=== PATIENT | male | born 1945 | race Hispanic/Latino ===

== ENCOUNTER 2018-10-15 05:40 | Inpatient (IN) | payer OTHER ==
--- NOTE | 2018-10-09 11:24 | RAD REPORT ---
EXAM DESCRIPTION: RAD - Chest Pa And Lat (2 Views) - 10/09/2018 11:13 am CLINICAL HISTORY: preop Chest pain. COMPARISON: No comparisons FINDINGS: The lungs are clear. The heart is prominent with changes of a prior CABG noted. No displac ed fractures.
[2018-10-09 12:00] LABS: Urine Appearance CLEAR; Urine Bilirubin NEGATIVE (NEG); Urine Blood NEGATIVE (NEG); Urine Color YELLOW; Urine Glucose NEGATIVE (NEG); Urine Protein NEGATIVE (NEG)
[2018-10-09 12:03] LABS: Absolute Lymphocytes (CBC) 1.8 K/uL (0.7-4.9); Absolute Monocytes 0.4 K/uL (0.1-1.3); Absolute Neutrophil 3.9 K/uL (1.8-8.0); Basophils % 0.6 % (0-1.3); Eosinophils % 2.4 % (0-4.4); Hematocrit 47.6 % (39.6-49.0); Lymphocytes % 28.7 % (15.3-44.8); MPV 9.5 fL (7.6-11.3); Monocytes % 6.8 % (3.3-12.3); RBC Red Blood Cell Count 4.97 M/uL (4.33-5.43)
[2018-10-09 12:13] LABS: Urine Microscopic Reflex NO UMIC
[2018-10-09 12:20] LABS: Albumin 4.2 g/dL (3.4-5.0); Bilirubin Total 0.9 mg/dL (0.2-1.0); Potassium 3.8 mmol/L (3.5-5.1)
[2018-10-09 12:26] LABS: Bilirubin Direct 0.3 mg/dL (0-0.2); Bilirubin Total 0.9 mg/dL (0.2-1.0)
[2018-10-09 13:16] LABS: Protime INR 1.37
[2018-10-15] MEDS ORDERED: Ringers Lactate 1,000 ML IV ONE (06:18)
[2018-10-15] MEDS ORDERED: CEFAZOLIN/SWI 1gm 1 GM/10 ML SYR ONE (06:19)
[2018-10-15] MEDS ORDERED: DEXAMETHASONE 4 MG/ML VIAL ONE (07:10)
[2018-10-15] MEDS ORDERED: MIDAZOLAM HCL 2 MG/2 ML INJ ONE (07:10)
[2018-10-15] MEDS ORDERED: FENTANYL CITR 100 MCG/2 ML ONE (07:10)
[2018-10-15] MEDS ORDERED: ROPLVACAINE HCL 40 ML ONE (07:10)
[2018-10-15] MEDS ORDERED: TRANEXAMIC ACID 1,000 MG in NA CHLORIDE 0.9% 50 ML IV SCH (07:15)
[2018-10-15] MEDS ORDERED: ROCURONIUM 50 MG/5 ML VIAL IV ONE ×2 (08:29→09:17)
[2018-10-15] MEDS ORDERED: LIDOCAINE 2% MPF 5 ML VIAL ONE (08:29)
[2018-10-15] MEDS ORDERED: PROPOFOL 200 MG/20 ML VIAL IV ONE (08:30)
[2018-10-15] MEDS ORDERED: EPHEDRINE SULF 50 MG/ML VIAL ONE (08:30)
[2018-10-15] MEDS: BUPIVACA 0.25%/EPI 0.0005% MDV 50 ML VIAL ONE ×2 (08:54→11:52)
[2018-10-15] MEDS ORDERED: NA CHLORIDE 0.9% 250 ML ONE (09:07)
[2018-10-15] MEDS ORDERED: NA CHLORIDE 0.9% 1,000 ML ONE (09:10)
[2018-10-15] MEDS ORDERED: CEFAZOLIN SODIUM 1 GM/VIAL ONE (09:20)
[2018-10-15] MEDS ORDERED: Phenylephrine HCl 10 MG/ML 1 ML VIAL ONE (09:47)
[2018-10-15] MEDS ORDERED: ESMOLOL HCL 10 ML IV ONE (10:43)
[2018-10-15] MEDS ORDERED: KETAMINE HCL 500 MG/5 ML VIAL ONE (11:10)
[2018-10-15] MEDS ORDERED: KETOROLAC 30 MG/ML INJ ONE (11:10)
[2018-10-15] MEDS: NA CHLORIDE 0.9% 1,000 ML ONE ×2 (11:50→12:24)
[2018-10-15] MEDS ORDERED: GLYCOPYRROLATE 0.2 MG/ML SYR ONE (12:05)
[2018-10-15] MEDS ORDERED: NEOSTIGMINE 1 MG/ML -10 ML VIAL ONE (12:13)
--- NOTE | 2018-10-15 12:17 | P.BOP ---
Preoperative diagnosis: MED. COMPT. PRIMARY DJD RIGHT KNEE Postoperative diagnosis: SAME Primary procedure: RIGHT TOTAL KNEE ARTHROPLASTY Traveling Construction Superintendent: Ping King (gave necessary 1st assist throughout case) Estimated blood loss: 250 mL Specimen: bone shards and spft tissues debrided Findings: Narrowed med. compartment w/chondromalacia Anesthesia: General Complications: None Implants: Sigma femoral Rsz3 PSRP; tray RPsz3; Insert [id number] PSRP; ODpatella, 38mm Fluids & blood products: simplex HV cement w/GENT 2 batches Transferred to: Recovery Room Condition: Good
[2018-10-15] MEDS ORDERED: DOCUSATE NA 100 MG CAP PO PRN (12:20)
[2018-10-15] MEDS ORDERED: ONDANSETRON 4 MG/2 ML VIAL IV PRN (12:20)
[2018-10-15 12:38] LABS: Hematocrit 45.1 % (39.6-49.0)
--- NOTE | 2018-10-15 12:42 | RAD REPORT ---
EXAM DESCRIPTION: RAD - Knee Right 2 View - 10/15/2018 12:37 pm CLINICAL HISTORY: Postop right TKA COMPARISON: None. FINDINGS: A right total knee arthroplasty has been performed. Hardware is in expected location. Air is present in the joint space. . Skin naveen are noted. IMPRESSION: Postoperative right knee with no unexpected finding.
[2018-10-15] MEDS ORDERED: ONDANSETRON HCL 40 MG/20 ML VIAL ONE (12:43)
[2018-10-15] MEDS: Ringers Lactate 1,000 ML IV SCH (13:00)
[2018-10-15] MEDS: HYDROCODONE/APAP 7.5/325 MG TAB PO PRN (15:17)
--- NOTE | 2018-10-15 15:44 | P.CNS ---
Date of Consult: 10/15/18 Reason for Consult: Medical management Chief Complaint: Right knee pain status post total knee replacement History of Present Illness: Patient is a 72-year-old obese male with past medical history of coronary artery disease status post CABG hypertension hyperlipidemia gout congestive heart failure on Eliquis who has severe osteoarthritis of the right knee and was admitted by Dr. Johnson for total knee replacement. Patient did well postoperatively. Patient does report some pain swelling and numbness. no fevers or chills. Hospitalist service was consulted for medical management. when the patient was seen on the floor he was awake alert oriented x3 not in any acute distress. Allergies No Known Allergies Allergy (Verified 10/09/18 10:40) Home medications list reviewed: Yes Home Medications: Allopurinol [Zyloprim] 300 mg PO DAILY 10/09/18 Apixaban [Eliquis] 5 mg PO BID 10/09/18 Aspirin [Aspirin EC 81 MG] 81 mg PO DAILY 10/09/18 Furosemide [Lasix] 40 mg PO BID 10/09/18 Lisinopril [Prinivil] 20 mg PO [id number] 10/09/18 Metoprolol Succinate [Toprol Xl] 50 mg PO BID 10/09/18 Potassium Chloride [K-Dur] 20 meq PO BID 10/09/18 Simvastatin 10 mg PO DAILY 10/09/18 - Past Medical/Surgical History Diabetic: No -: htn -: Hyperlipidemia -: Coronary artery disease -: Gout -: Congestive heart -: quadruple heart bypass-2010 -: cholecystectomy-2017 -: hemorrhoidectomy 2008 -: appendectomy 1968 -: left total knee replaced 2013 -: Inguinal hernia repair - Family History Mother Medical History: Hypertension Notes: brother-diabetic. sister-diabetic, kidney and stomach disease - Social History Smoking Status: Never smoker Alcohol use: No CD- Drugs: No Caffeine use: Yes Place of Residence: Home Review of Systems 10-point ROS is otherwise unremarkable General: As per HPI Musculoskeletal: As per HPI Physical Examination Temp Pulse Resp BP Pulse Ox 97.6 F 68 14 109/68 10/15/18 13:42 10/15/18 13:42 10/15/18 13:42 10/15/18 13:42 General: Alert, In no apparent distress, Oriented x3, Obese HEENT: Atraumatic, PERRLA, Mucous membr. moist/pink, EOMI, Sclerae nonicteric Neck: Supple, 2+ carotid pulse no bruit, JVD not distended Respiratory: Clear to auscultation bilaterally, Normal air movement Cardiovascular: No edema, Normal pulses, Regular rate/rhythm, Normal S1 S2 Gastrointestinal: Normal bowel sounds, Soft and benign, Non-distended, No tenderness Musculoskeletal: Other (Right knee Incision site clean dry and intact. Wrapped with Jak wrap) Integumentary: No rashes Neurological: Normal gait, Normal speech, Normal strength at 5/5 x4 extr, Normal tone, Normal affect Lymphatics: No axilla or inguinal lymphadenopathy Laboratory Data (last 24 hrs) 10/15/18 12:23: Hgb 15.0, Hct 45.1 Imagings Data: Right knee x-ray Postoperative right knee with no unexpected finding. Chest x-ray The lungs are clear. The heart is prominent with changes of a prior CABG noted. No displaced fractures - Problems (1) Right knee DJD Current Visit: Yes Status: Acute Qualifiers: Osteoarthritis type: primary Qualified Code(s): M17.11 - Unilateral primary osteoarthritis, right knee (2) Congestive heart failure Current Visit: Yes Status: Acute Qualifiers: Heart failure type: systolic Heart failure chronicity: chronic Qualified Code(s): I50.22 - Chronic systolic (congestive) heart failure (3) Osteoarthritis Current Visit: Yes Status: Acute Qualifiers: Osteoarthritis location: knee Osteoarthritis type: primary Laterality: right Qualified Code(s): M17.11 - Unilateral primary osteoarthritis, right knee (4) Coronary artery disease Current Visit: Yes Status: Acute Qualifiers: Coronary Disease-Associated Artery/Lesion type: [place] artery [place] vs. transplanted heart: [place] heart Associated angina: without angina Qualified Code(s): I25.10 - Atherosclerotic heart disease of [place] coronary artery without angina pectoris (5) Hypertension Current Visit: Yes Status: Acute Qualifiers: Hypertension type: essential hypertension Qualified Code(s): I10 - Essential (primary) hypertension (6) Hyperlipidemia Current Visit: Yes Status: Acute Qualifiers: Hyperlipidemia type: mixed hyperlipidemia Qualified Code(s): E78.2 - Mixed hyperlipidemia (7) Obesity (BMI 30.0-34.9) Current Visit: Yes Status: Acute (8) Gout Current Visit: Yes Status: Acute Qualifiers: Gout site: unspecified site Encounter type: initial encounter Chronicity : chronic Presence of tophus: without tophus (9) Diabetes Current Visit: Yes Status: Acute Qualifiers: Diabetes mellitus type: type 2 Diabetes mellitus prison insulin use: without marine oil terminal superintendent 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 No previous history of diabetes. For now recommend lifestyle modification. Start on sliding scale insulin and monitor glucose ACHS. Recheck hemoglobin A1c in 3 months. If still elevated and lifestyle modifications have not made a difference than patient to be started on metformin. Diabetes education Resume home medications as appropriate P.r.n. medications for blood pressure greater than 160 systolic PT eval Patient counseled regarding obesity. Dietary and lifestyle changes recommended Resume Eliquis 24 hr post surgery. Monitor H&H BMP in a.m. Will follow along with you Thank you for the opportunity to participate in the care of your patient
[2018-10-15] MEDS ORDERED: GLUCAGON 1 MG/VIAL IM PRN (15:56)
[2018-10-15] MEDS ORDERED: D50W 25 GM/50 ML SYRINGE IV PRN (15:56)
[2018-10-15] MEDS: INSULIN -REGULAR HUMAN 50 UNIT/0.5 ML ML SQ SCH ×2 (16:53→21:00)
[2018-10-15] MEDS: CEFAZOLIN/SWI 1gm 1 GM/10 ML SYR IVP SCH (16:53)
[2018-10-15] MEDS: POTASSIUM CL SA 10 MEQ TAB PO SCH (21:09)
[2018-10-15] MEDS: ATORVASTATIN 10 MG TAB PO SCH (21:09)
[2018-10-15] MEDS: METOPROLOL XL 50 MG TAB PO SCH (21:10)
[2018-10-16] MEDS: CEFAZOLIN/SWI 1gm 1 GM/10 ML SYR IVP SCH (02:38)
[2018-10-16 06:23] LABS: Hematocrit 38.9 % (39.6-49.0)
[2018-10-16 06:36] LABS: Potassium 4.3 mmol/L (3.5-5.1)
[2018-10-16] MEDS: LISINOPRIL 20 MG TAB PO SCH (06:39)
[2018-10-16] MEDS: INSULIN -REGULAR HUMAN 50 UNIT/0.5 ML ML SQ SCH ×4 (07:30→21:00)
[2018-10-16] MEDS: Ringers Lactate 1,000 ML IV SCH (08:02)
[2018-10-16] MEDS: METOPROLOL XL 50 MG TAB PO SCH ×2 (09:58→21:41)
[2018-10-16] MEDS: POTASSIUM CL SA 10 MEQ TAB PO SCH ×2 (09:59→21:40)
[2018-10-16] MEDS: ALLOPURINOL 300 MG TAB PO SCH (09:59)
--- NOTE | 2018-10-16 13:38 | P.PN ---
Subjective Date of Service: 10/16/18 Chief Complaint: Right knee pain status post total knee replacement Subjective: Improving, Working w/ PT (pain is better controlled. States numbness in leg has improved.) Review of Systems 10-point ROS is otherwise unremarkable Musculoskeletal: As per HPI Physical Examination - Vital Signs Temperature: 97.8 F Blood Pressure: 109/59 Pulse: 71 Respirations: 19 Pulse Ox (%): 93 - Physical Exam General: Alert, In no apparent distress, Oriented x3, Obese HEENT: Atraumatic, PERRLA, EOMI Neck: Supple, JVD not distended Respiratory: Clear to auscultation bilaterally, Normal air movement Cardiovascular: No edema, Normal pulses, Regular rate/rhythm, Normal S1 S2 Gastrointestinal: Normal bowel sounds, Soft and benign, Non-distended, No tenderness Musculoskeletal: No clubbing, Tenderness, Other (right knee incision site clean/ dry/intact. Bandaged) Integumentary: No rashes Neurological: Normal speech, Normal tone, Normal affect - Studies Laboratory Data (last 24 hrs) 10/16/18 05:50: Sodium 139, Potassium 4.3, BUN 20 H, Creatinine 0.91, Glucose 149 H 10/16/18 05:37: Hgb 13.2 L, Hct 38.9 L Medications List Reviewed: Yes Assessment And Plan - Current Problems (Diagnosis) (1) Right knee DJD Current Visit: Yes Status: Acute Qualifiers: Osteoarthritis type: primary Qualified Code(s): M17.11 - Unilateral primary osteoarthritis, right knee (2) Acute blood loss as cause of postoperative anemia Current Visit: Yes Status: Acute Plan: Monitor HH. Transfuse for HH <7. (3) Congestive heart failure Current Visit: Yes Status: Acute Qualifiers: Heart failure type: systolic Heart failure chronicity: chronic Qualified Code(s): I50.22 - Chronic systolic (congestive) heart failure (4) Osteoarthritis Current Visit: Yes Status: Acute Qualifiers: Osteoarthritis location: knee Osteoarthritis type: primary Laterality: right Qualified Code(s): M17.11 - Unilateral primary osteoarthritis, right knee (5) Coronary artery disease Current Visit: Yes Status: Acute Qualifiers: Coronary Disease-Associated Artery/Lesion type: [place] artery [place] vs. transplanted heart: [place] heart Associated angina: without angina Qualified Code(s): I25.10 - Atherosclerotic heart disease of [place] coronary artery without angina pectoris (6) Hypertension Current Visit: Yes Status: Acute Qualifiers: Hypertension type: essential hypertension Qualified Code(s): I10 - Essential (primary) hypertension (7) Hyperlipidemia Current Visit: Yes Status: Acute Qualifiers: Hyperlipidemia type: mixed hyperlipidemia Qualified Code(s): E78.2 - Mixed hyperlipidemia (8) Obesity (BMI 30.0-34.9) Current Visit: Yes Status: Acute (9) Gout Current Visit: Yes Status: Acute Qualifiers: Gout site: unspecified site Encounter type: initial encounter Chronicity : chronic Presence of tophus: without tophus (10) Diabetes Current Visit: Yes Status: Acute Qualifiers: Diabetes mellitus type: type 2 Diabetes mellitus half-way insulin use: without half-way use Diabetes mellitus complication status: with hyperglycemia Qualified Code(s): E11.65 - Type 2 diabetes mellitus with hyperglycemia - Plan Monitor HH Cont SSI and accu checks Resume Elquis tonight. resume ASA Cont PT Will follow with you.
[2018-10-16] MEDS: FUROSEMIDE 40 MG TABLET PO SCH (16:30)
[2018-10-16] MEDS: HYDROCODONE/APAP 7.5/325 MG TAB PO PRN ×2 (17:14→21:41)
[2018-10-16] MEDS: APIXABAN 5 MG TABLET PO SCH (21:40)
[2018-10-16] MEDS: ATORVASTATIN 10 MG TAB PO SCH (21:41)
[2018-10-17] MEDS: HYDROCODONE/APAP 7.5/325 MG TAB PO PRN ×3 (03:21→18:34)
[2018-10-17] MEDS: Ringers Lactate 1,000 ML IV SCH (05:00)
[2018-10-17] MEDS: LISINOPRIL 20 MG TAB PO SCH (06:25)
[2018-10-17] MEDS: INSULIN -REGULAR HUMAN 50 UNIT/0.5 ML ML SQ SCH ×4 (07:30→21:00)
[2018-10-17] MEDS: APIXABAN 5 MG TABLET PO SCH ×2 (08:40→21:28)
[2018-10-17] MEDS: METOPROLOL XL 50 MG TAB PO SCH ×2 (08:40→21:28)
[2018-10-17] MEDS: FUROSEMIDE 40 MG TABLET PO SCH ×2 (08:41→17:17)
[2018-10-17] MEDS: ALLOPURINOL 300 MG TAB PO SCH (08:41)
[2018-10-17] MEDS: POTASSIUM CL SA 10 MEQ TAB PO SCH ×2 (08:41→21:27)
--- NOTE | 2018-10-17 12:15 | P.PN ---
Subjective Date of Service: 10/17/18 Chief Complaint: Right knee pain status post total knee replacement Patient seen and examined chart reviewed and case discussed with that is yesterday. Patient states pain is significantly better working well with PT ambulating with walker. Review of Systems 10-point ROS is otherwise unremarkable Musculoskeletal: As per HPI Physical Examination - Vital Signs Temperature: 96.9 F Blood Pressure: 115/66 Pulse: 85 Respirations: 18 Pulse Ox (%): 99 - Physical Exam General: Alert, In no apparent distress, Oriented x3, Obese HEENT: Atraumatic, PERRLA, EOMI Neck: Supple, JVD not distended Respiratory: Clear to auscultation bilaterally, Normal air movement Cardiovascular: No edema, Normal pulses, Regular rate/rhythm, Normal S1 S2 Gastrointestinal: Normal bowel sounds, Soft and benign, Non-distended, No tenderness Musculoskeletal: No tenderness Integumentary: No rashes, No erythema, Other (Right knee incision site clean dry intact) Neurological: Normal speech, Normal tone, Normal affect - Studies Laboratory Data (last 24 hrs) 10/17/18 04:14: Hgb 13.1 L, Hct 39.0 L Medications List Reviewed: Yes Assessment And Plan - Current Problems (Diagnosis) (1) Right knee DJD Current Visit: Yes Status: Acute Qualifiers: Osteoarthritis type: primary Qualified Code(s): M17.11 - Unilateral primary osteoarthritis, right knee (2) Acute blood loss as cause of postoperative anemia Current Visit: Yes Status: Acute Plan: Monitor HH. Transfuse for HH <7. (3) Congestive heart failure Current Visit: Yes Status: Acute Qualifiers: Heart failure type: systolic Heart failure chronicity: chronic Qualified Code(s): I50.22 - Chronic systolic (congestive) heart failure (4) Osteoarthritis Current Visit: Yes Status: Acute Qualifiers: Osteoarthritis location: knee Osteoarthritis type: primary Laterality: right Qualified Code(s): M17.11 - Unilateral primary osteoarthritis, right knee (5) Coronary artery disease Current Visit: Yes Status: Acute Qualifiers: Coronary Disease-Associated Artery/Lesion type: [place] artery [place] vs. transplanted heart: [place] heart Associated angina: without angina Qualified Code(s): I25.10 - Atherosclerotic heart disease of [place] coronary artery without angina pectoris (6) Hypertension Current Visit: Yes Status: Acute Qualifiers: Hypertension type: essential hypertension Qualified Code(s): I10 - Essential (primary) hypertension (7) Hyperlipidemia Current Visit: Yes Status: Acute Qualifiers: Hyperlipidemia type: mixed hyperlipidemia Qualified Code(s): E78.2 - Mixed hyperlipidemia (8) Obesity (BMI 30.0-34.9) Current Visit: Yes Status: Acute (9) Gout Current Visit: Yes Status: Acute Qualifiers: Gout site: unspecified site Encounter type: initial encounter Chronicity : chronic Presence of tophus: without tophus (10) Diabetes Current Visit: Yes Status: Acute Qualifiers: Diabetes mellitus type: type 2 Diabetes mellitus exterminator insulin use: without residential use Diabetes mellitus complication status: with hyperglycemia Qualified Code(s): E11.65 - Type 2 diabetes mellitus with hyperglycemia - Plan Continue incentive spirometry Monitor HH Cont SSI and accu checks Cont PT Will follow with you.
[2018-10-17] MEDS: ASPIRIN EC 81 MG TAB PO SCH (12:49)
--- NOTE | 2018-10-17 13:25 | P.PN ---
Date of Service: 10/16/18 (POD#1) S: PATIENT QUITE COMFORTABLE AND USED ONLY 1 DOSE PO PAIN MED YESTERDAY, NONE SINCE. ALREADY DID 51' WITH PT THIS AM. O: VSS, AFEBRILE, HGB15.0 AFTER SURGERY, 13.2 THIS AM. FEMORAL & SCIATIC NERVE BLOCKS STILL LIMITING QUAD AND ANKLE EXTENSION. TOES EXTENDING SLIGHTLY. PAIN CONTROL STILL IN EFFECT EXPLAINS LIMITED USE OF MEDICATION. BANDAGE CLEAN DRY AND INTACT. X-RAYS SHOW GOOD ALIGNMENT OF PROSTHETIC COMPONENTS. ELIQUIS TO RESTART THIS EVENING, RUN OF AFIB NOTED ON MONITOR THIS AM. RESTARTING ASA 81 MG TONIGHT WELL. A: HIGHLY MOTIVATED PATIENT DOING WELL 1ST POSTOP DAY. P: CONTINUE MOBILIZATION TOLERATED. APPRECIATE DR. BROWNING'S HELP WITH MEDICAL MANAGEMENT.
--- NOTE | 2018-10-17 13:37 | P.PN ---
Date of Service: 10/17/18 (POD#2) S: PATIENT SITTING IN BEDSIDE CHAIR FORCING FLEXION TO 110 DEGREES.DESCRIBES MAKING COMPLETE CIRCUIT WITH PT THIS AM~270'. WAS ABLE TO GO 125' [id number]' YESTERDAY AFTERNOON. O: VSS, AFEBRILE, 13.1 THIS AM. NERVE BLOCKS RESOLVED AND PATIENT IS ACTIVELY EXTENDING QUAD AND ANKLES/TOES. PAIN CONTROL REQUIRING USE OF PO MEDICATION. BANDAGE REMAINS CLEAN DRY AND INTACT. A: HIGHLY MOTIVATED PATIENT DOING WELL 2ND POSTOP DAY. P: PATIENT CAUTIONED FROM BEING TOO AGGRESSIVE WITH AAROM. FORCED FLEXION CAN FORM FISTULOUS DRAINAGE TRACT TO COMPLICATE WOUND HEALING. ENCOURAGED TO USE CPM FOR STEADY INCREASE IN ROM WITHOUT HIGH PRESSURE HYDRAULIC FORCE. RANGE IMPROVES POST OP HEMARTHROSIS RESOLVES. CONTINUE MOBILIZATION TOLERATED. PLAN DISCHARGE FOR TOMORROW AFTER PHYSICAL THERAPY MORNING EFFORT.
[2018-10-17] MEDS: ATORVASTATIN 10 MG TAB PO SCH (21:27)
[2018-10-17] MEDS: MORPHINE 4 MG/ML SYR IV PRN (21:28)
[2018-10-18 06:41] LABS: Hematocrit 40.1 % (39.6-49.0)
[2018-10-18] MEDS: LISINOPRIL 20 MG TAB PO SCH (06:45)
[2018-10-18] MEDS: MORPHINE 4 MG/ML SYR IV PRN (06:45)
[2018-10-18] MEDS: INSULIN -REGULAR HUMAN 50 UNIT/0.5 ML ML SQ SCH ×3 (07:30→16:30)
[2018-10-18] MEDS: APIXABAN 5 MG TABLET PO SCH (08:24)
[2018-10-18] MEDS: HYDROCODONE/APAP 7.5/325 MG TAB PO PRN (08:24)
[2018-10-18] MEDS: ASPIRIN EC 81 MG TAB PO SCH (08:25)
[2018-10-18] MEDS: FUROSEMIDE 40 MG TABLET PO SCH (08:25)
[2018-10-18] MEDS: ALLOPURINOL 300 MG TAB PO SCH (08:25)
[2018-10-18] MEDS: METOPROLOL XL 50 MG TAB PO SCH (08:26)
[2018-10-18] MEDS: POTASSIUM CL SA 10 MEQ TAB PO SCH (08:26)
--- NOTE | 2018-10-18 13:14 | P.PN ---
Date of Service: 10/18/18 (POD#3) S: PATIENT SITTING IN BEDSIDE CHAIR FINISHING DIET. EASILY MAKING COMPLETE CIRCUIT WITH PT w/FWW~280'. READY FOR DISCHARGE. O: VSS, AFEBRILE, 13.8 THIS AM, UP FROM 13.1 YEST. BANDAGE REMAINS CLEAN DRY AND INTACT, TO BE CHANGED PRIOR TO DISCHARGE. A: HIGHLY MOTIVATED PATIENT DOING WELL 3RD POSTOP DAY. P: PATIENT AGAIN CAUTIONED FROM BEING TOO AGGRESSIVE WITH AROM AND PROM. FORCED FLEXION CAN PUSH FORWARD WITH HYDRAULIC FORCE TO CREATE A FISTULOUS DRAINAGE TRACT TO COMPLICATE WOUND HEALING. ENCOURAGED TO USE CPM FOR STEADY PASSIVE INCREASE IN ROM WITHOUT HIGH PRESSURE FORCE. RANGE IMPROVES POST OP HEMARTHROSIS REABSORBS. CONTINUE MOBILIZATION TOLERATED. DISCHARGE PLANNED TODAY. PHYSICAL THERAPY MORNING EFFORT WAS QUITE SUCCESSFUL. CHANGE AQUACEL BANDAGES PRIOR TO DISCHARGE,ALCOHOL WIPES BEFORE NEW AQUACELS APPLIED. CPM FOR HOME ARRANGED,O-75* SLOW SPEED FOR 3-4 HRS/D RLE. HH FOR ADL, PT TO CONTINUE WBAT RLE FOR TRANSFERS AND GAIT w/FWW F/U MY OFFICE IN 10D FOR STAPLE REMOVAL.
--- NOTE | 2018-10-18 16:13 | P.PN ---
Subjective Date of Service: 10/18/18 Chief Complaint: Right knee pain status post total knee replacement Subjective: Improving Patient seen and examined chart reviewed and case discussed with Dr. Johnson. Patient states pain is significantly better working well with PT ambulating with walker. Review of Systems 10-point ROS is otherwise unremarkable Musculoskeletal: As per HPI Physical Examination - Vital Signs Temperature: 96.8 F Blood Pressure: 109/62 Pulse: 87 Respirations: 18 Pulse Ox (%): 95 - Physical Exam General: Alert, In no apparent distress, Oriented x3, Obese HEENT: Atraumatic, PERRLA, EOMI Neck: Supple Respiratory: Clear to auscultation bilaterally, Normal air movement Cardiovascular: Normal pulses, Regular rate/rhythm, Normal S1 S2, Edema Gastrointestinal: Normal bowel sounds, Soft and benign, Non-distended, No tenderness Musculoskeletal: No tenderness, Other (Right knee incision site clean dry intact ) Integumentary: No rashes Neurological: Normal speech, Normal tone, Normal affect - Studies Laboratory Data (last 24 hrs) 10/18/18 06:03: Hgb 13.8, Hct 40.1 Medications List Reviewed: Yes Assessment And Plan - Current Problems (Diagnosis) (1) Right knee DJD Current Visit: Yes Status: Acute Qualifiers: Osteoarthritis type: primary Qualified Code(s): M17.11 - Unilateral primary osteoarthritis, right knee (2) Acute blood loss as cause of postoperative anemia Current Visit: Yes Status: Acute Plan: Stable. Monitor HH. Transfuse for HH <7. (3) Congestive heart failure Current Visit: Yes Status: Acute Qualifiers: Heart failure type: systolic Heart failure chronicity: chronic Qualified Code(s): I50.22 - Chronic systolic (congestive) heart failure (4) Osteoarthritis Current Visit: Yes Status: Acute Qualifiers: Osteoarthritis location: knee Osteoarthritis type: primary Laterality: right Qualified Code(s): M17.11 - Unilateral primary osteoarthritis, right knee (5) Coronary artery disease Current Visit: Yes Status: Acute Qualifiers: Coronary Disease-Associated Artery/Lesion type: [place] artery [place] vs. transplanted heart: [place] heart Associated angina: without angina Qualified Code(s): I25.10 - Atherosclerotic heart disease of [place] coronary artery without angina pectoris (6) Hypertension Current Visit: Yes Status: Acute Qualifiers: Hypertension type: essential hypertension Qualified Code(s): I10 - Essential (primary) hypertension (7) Hyperlipidemia Current Visit: Yes Status: Acute Qualifiers: Hyperlipidemia type: mixed hyperlipidemia Qualified Code(s): E78.2 - Mixed hyperlipidemia (8) Obesity (BMI 30.0-34.9) Current Visit: Yes Status: Acute (9) Gout Current Visit: Yes Status: Acute Qualifiers: Gout site: unspecified site Encounter type: initial encounter Chronicity : chronic Presence of tophus: without tophus (10) Diabetes Current Visit: Yes Status: Acute Qualifiers: Diabetes mellitus type: type 2 Diabetes mellitus assisted insulin use: without assistant secretary use Diabetes mellitus complication status: with hyperglycemia Qualified Code(s): E11.65 - Type 2 diabetes mellitus with hyperglycemia - Plan Patient going home today with home health and PT Continue incentive spirometry Monitor HH Cont SSI and accu checks Cont PT Will follow with you. Discharge Plan: Home
--- NOTE | 2018-10-19 01:03 | OP ---
Date of Procedure: 10/15/2018 Surgeon: Medardo Johnson MD Instructional Media Services Technician: Ping King who gave very necessary visitor service assistant services throughout the case. Preoperative Diagnosis: Medial compartment primary DJD, right knee. Postoperative Diagnosis: Medial compartment primary DJD, right knee. Primary Procedure: Right total knee arthroplasty with computer navigation. Indications: This 72-year-old male has had severe pain and limitations in using his right knee for y ears. He has had a previous left total knee arthroplasty done by Dr. Wolff and has elected to pro ceed with right total knee arthroplasty after a thorough discussion of risks and benefits with all qu estions answered. Technique: The patient was given a femoral nerve and sciatic nerve block in the PACU and then was ta ryan to the operative room, initially placed in a supine position on the operative table. A general a nesthetic with intubation was applied and the patient had prepping and draping of the right lower ext remity after a bolster was placed under the right hip and the tourniquet was applied to the proximal thigh. The foot was initially in traction and prepping was carried out from the tourniquet to the an kle and then the limb was removed from traction and a DuraPrep stick was used to prep the foot and an kle. After an impervious drape was applied to the foot and ankle and wrapped with Coban, the additio nal draping was accomplished. The incision was drawn on the anterior knee and then the operative are a was covered Ioban sticky drape. An Esmarch bandage was used to exsanguinate the right lower extrem ity and the tourniquet was raised to 250 mmHg for 130 minutes. An additional short tourniquet time w as used for cement injection into the bone and allowing the cement to set. The incision was made homer gitudinally over the patella, extending 4 cm proximally and distally to the tibial tubercle. Sharp d issection was carried through the skin and subcutaneous tissue and then a medial parapatellar approac h was made through the capsular layer. The patella was everted and measured at 23 mm thickness. The 38 mm oval dome patellar trial was placed in position and felt to be appropriate in size. Therefore , the cutting jig was adjusted to remove 9 mm of articular surface. The cut was made with oscillatin g saw and PEG holes were drilled. Then, the trial insert was placed in position and the patella agai n measured 23 mm. The patellar trial was removed and a metal brannon was putting in its place. Anterio r sharp debridement was carried out to include the accessible medial and lateral menisci, anterior cr uciate ligament, and release of the posterior cruciate origin from the intercondylar notch. Anterior debridement was also carried out above the distal femoral articular surface on the anterior femur to allow placement of the flat-footed array. Two threaded 3-mm pins were placed proximally within the incision on the medial side of the distal femoral shaft in the metaphyseal area. The femoral array w as attached to those 2 pins. Two punctures were made in the mid tibial aspect on the medial portion of the tibia. These punctures were used for insertion of 3 mm threaded pins for the tibial array to be attached to the tibia. The limb was then moved in circumduction to calculate within the computer. The center of rotation of the femoral head, the registration of the femur and the tibia were mike d out in sequence as indicated with the Korbit technique. The computers solved for a size 4 femur and tibial tray, but flexion gap was somewhat tight and narrow, so the size was reduced to size 3, wh ich was placed in front of the femoral condyles and found to be an acceptable size. Navigation of th e tibial cutting jig was carried out and it was secured in position. That cut was made and verified with the flat-footed array. Tensionometer was placed within the joint and ligament balancing require d releasing of the distal insertion of the medial collateral ligament. Once the ligament balancing w as acceptable, the solution was accepted and the cutting jig for the distal femur was navigated into position and secured. The distal cut was made and verified and then the 4-in-1 cutting guide was use d to navigate and secure before cutting the anterior portion of the distal femur. This was verified by the flat-footed array and the additional cuts were made for posterior and chamfer cuts. The notch box was placed in position and the reciprocating saw was used to cut the notch for the Sigma femoral right size 3 posterior stabilized rotating platform prosthetic component. The trial was applied and fit nicely. The trial was then removed and the tibial surface was prepared for insertion of the rot ating platform tibial tray size 3. That trial component was secured in position. The Sigma femoral size 3 right prosthetic trial component was tapped into position. The insert chosen was the size 3 x 10 mm posterior stabilized rotating platform trial component. Once it was in place with the oval do me patella 38 mm diameter component also in position, the knee was quite stable and would extend and flex and resist anterior drawer, posterior drawer, varus and valgus stress. There was slight opening to varus stress, less than 5 mm. It was decided that up sizing from the 10 mm insert would most lik sree just restrict flexion and not add to stability. The trial components were all removed and Simpul se lavage was performed while the 2 batches of simplex HV cement with gentamicin were mixed and place d into a cement gun for injection technique. Then, the cement gun and injection technique were clinton ed out for the cut surface of the proximal tibia. The tibial component was tapped into position. Th is was the size 3 rotating platform tibial tray. Excess cement was curetted away and attention was t urned to injecting cement in the cut surface of the distal femur. The tibial component consisting of the Sigma femoral prosthetic component, right, size 3 was pressed into position with excess cement r emoved. The 10-mm insert was placed in position. The knee was extended and then cement was injected into the cut surface of the patella and the 38 mm oval dome patellar component was clamped into posi tion. The cement was allowed to set for 18 minutes and then the knee was trialed again with stressin g for anterior-posterior and varus and valgus stresses as well as evaluating full extension and flexi on greater than 120 degrees. The 10-mm insert thickness was chosen and that component was opened and placed in the knee with anterior subluxation of the tibia to allow the tibial condyles to be reduced onto the prosthetic insert. The knee extended to 0 and flex to 120. There was a slight give to thierno us less than 5 degrees, but anterior drawer and posterior drawer were stable as well as valgus stress . The irrigation was carried out. The initial tourniquet time was 2 hours and 10 minutes. The taz tional 40 minutes of tourniquet time was used for cement injection and closure of the proximal capsul e prior to flexing the knee and releasing the tourniquet. Estimated blood loss was 250 mL. The clos ure was affected with Simpulse lavage irrigation prior to using #1 Vicryl interrupted sutures for alla sure of the capsule in a watertight fashion. Then, 2-0 Vicryl was used for interrupted sutures for d eep subcutaneous and shallow subcutaneous closure again with irrigation prior to the subcutaneous alla sure. Irrigation was then carried out prior to closing the skin incision with skin naveen. The 2 p unctures over the distal midportion of the tibia were closed with single naveen. Aquacel bandages w ere placed over the proximal main incision and over the 2 punctures. Soft roll and an Jak wrap were used for compressive bandage. Prior to application of the bandage, the incisions were injected with 20 mL of 0.25% Marcaine with epi. The patient was then taken to the recovery room having tolerated this procedure well. KEVIN/SALLY Voice ID: [id number] Report ID: [id number]
--- NOTE | 2018-10-19 07:28 | DS ---
Date of Discharge: 10/18/2018 Hospital Course: The patient was admitted on 10/15/2018 after right total knee arthroplasty performe d with computer navigation, imageless. The patient is a 72-year-old male, who had his left total kne e arthroplasty done 3 to [address] Wolff. The patient has had persistent limitations in pain with utilization of his right knee. Activities have been more and more limited. He has after d iscussion of risks and benefits elected to proceed with total knee arthroplasty. The procedure went well with a total knee by [employer] consisting of a Sigma femoral prosthetic component, size 3 right post erior stabilized RP component. The tray chosen was the rotating platform, size 3. The insert chosen was the size 3 x 10 mm posterior stabilized rotating platform component. The patellar button chosen was oval dome size 38 mm diameter and all components were secured with Simplex-HV cement with gentami duran, 2 batches in a cement gun for injection technique. Estimated blood loss was 250 mL and the bobby ent was taken to the recovery room where he was placed in a CPM machine for the right lower extremity at 0 to 60 degrees range of motion. The patient did quite well in recovery and went to the Acute fl oor. Dr. Sebas Irving MD was consulted for medical management in the identified congestive heart fa ilure, osteoarthritis, coronary artery disease with history of CABG, hypertension, hyperlipidemia, ob esity, gout, and diabetes type 2. Hemoglobin A1c prior to surgery was 6.5% as a new onset diabetic. He is being treated with lifestyle modification, but was placed on a sliding scale insulin protocol and glucoses were monitored this hospitalization, recommended recheck A1c in 3 months for metformin t o be started if lifestyle modifications have not made a difference. Dietary lifestyle changes were r ecommended for obesity. The patient's Eliquis 5 mg b.i.d. was restarted 24 hours post surgery as was his daily 81 mg aspirin. On the first postoperative day, the patient was quite comfortable as his f emoral nerve block was performing in a prolonged manner. He used only 1 dose of p.o. pain medication on 10/15 and had used none through the time of hospital visit just past noon. X-rays showed good al ignment of prosthetic components. The patient's hemoglobin was 15.0 after surgery down to 13.2 on morning of 10/16. The patient was aggressively moving his right knee, highly motivated to maximize his outcome with his physical therapy efforts. On the second postoperative day, the patient was sitt ing in his bedside chair, forcing flexion to more than 110 degrees with his right hand. He described making a complete circuit around the floor with physical therapy approximately 270 feet. He was abl e to go 125 feet and 175 feet in sequence at his afternoon session on 10/16. Vital signs were stable . The patient was afebrile. His hemoglobin was 13.1 with the morning draw down only a tenth of a po int. Nerve block had completely resolved and the patient was actively extending with his quad and sh owing dorsiflexion and plantar flexion with his ankle and toes. The patient was starting to use p.o. medication and in the evening even used IV morphine on one occasion. The patient was cautioned abou t being too aggressive with forced active assist range of motion as the forced flexion can create hyd raulic pressure and cause the fistula to form and leak as fluid is moved from the muscle compression behind the knee forward and underneath the incision line. The patient was encouraged to use the cont inuous passive range of motion with slow steady increase in range, 5 degrees per day to avoid the hig h hydraulic pressure forces within the anterior knee. Range will naturally improve as post-op hemart hrosis resolves. On the third post-op day, the patient again was found sitting in the bedside chair, finishing his diet. He completely cleaned his plate and desert bowl. He described making a complet e circuit again with physical therapy, going 280 feet with the front wheeled walker. He is quite juan jose dy and anxious for discharge today. The vital signs were stable. Hemoglobin was 13.8, already up fr om the 13.1 reading yesterday. The bandage remains clean, dry, and intact and is to be changed prior to discharge using alcohol swabs before a second Aquacel bandage is applied to the knee. The kathie pacheco is to be discharged to home with Home Health, [facility] to follow him at [facility], scheduled to see him on Sunday morning. As mentioned, the Aquacel bandages are scheduled to be changed prior to discharge. CPM for home has been arranged to start at 0 to 75 degrees and increase 5 degrees per day to a maximum of 120 degrees as tolerated. The CPM will be used for 3 to 4 hours of f and on, being upright moving around vertically in the vertical position to encourage deep breathing and circulation to increase when out of bed. The patient will have Home Health for activities of [facility] and PT will be offered from Physical therapy for a week at home and then moved to [facility]. Therapy is to consist of weightbearing as tolerated, right lower extremity for transfers and gait using a front wheeled walker with followup in my office in 7 to 10 days for staple removal. POC glucose checks on 10/17 were 105 and 121; 155 and 129 on 10/18; glucose checks were 118 and 132. As mentioned, hemoglobin went to a low of 13.1 and on the day of di scharge had risen to 13.8. KEVIN/SALLY Voice ID: [id number] Report ID: [id number]
== END 2018-10-18 17:59 | disposition home health service (06) | DRG 470 ==
LOC: OR 05:40 → 4TH 12:21
PROVIDERS: ADMIT Orthopaedic Surgery; ATTEND Orthopaedic Surgery
PROC: 0SRC0J9 Replacement of Right Knee Joint with Synthetic Substitute, Cemented, Open Approach (ICD-10-PCS; principal; 2018-10-15 07:30)
DX: M17.11 Unilateral primary osteoarthritis, right knee (principal); I25.810 Atherosclerosis of coronary artery bypass graft(s) without angina pectoris; I50.22 Chronic systolic (congestive) heart failure; D62 Acute posthemorrhagic anemia; I25.10 Atherosclerotic heart disease of native coronary artery without angina pectoris; I11.0 Hypertensive heart disease with heart failure; E11.65 Type 2 diabetes mellitus with hyperglycemia; E78.2 Mixed hyperlipidemia; M1A.9XX0 Chronic gout, unspecified, without tophus (tophi); I48.91 Unspecified atrial fibrillation; M54.32 Sciatica, left side; E66.9 Obesity, unspecified; Z68.35 Body mass index [BMI] 35.0-35.9, adult; Z79.82 Long term (current) use of aspirin; Z79.52 Long term (current) use of systemic steroids; Z96.652 Presence of left artificial knee joint
CPT/HCPCS: 36415; 71046; 80048; 80053; 80076; 81003; 82962; 83036; 85014; 85018; 85025; 85610; 85730; 86850; 86900; 86901; 88304; 88311; 97116; 97139; 97163; 97530; J0690; J2250; J2370; J2405; J2704; J2710; J2795; J3010; J7030

== ENCOUNTER 2019-10-01 06:00 | Day surgery (SDC) | payer OTHER ==
[2019-09-25 12:16] LABS: Basophils % 0.5 % (0-1.3); Hematocrit 44.3 % (39.6-49.0); Lymphocytes % 28.8 % (15.3-44.8); MPV 9.6 fL (7.6-11.3); RBC Red Blood Cell Count 4.61 M/uL (4.33-5.43)
--- NOTE | 2019-09-25 12:18 | RAD REPORT ---
EXAM DESCRIPTION: Shyanne Khalil (2 Views)09/25/2019 12:10 pm CLINICAL HISTORY: Preop for shoulder surgery COMPARISON: 2019 FINDINGS: The lungs appear clear of acute infiltrate. The heart is mildly to moderately enlarged. Postsurgical changes involve the chest. IMPRESSION: No acute abnormalities displayed
[2019-09-25 12:24] LABS: Protime INR 1.43
[2019-09-25 12:27] LABS: Potassium 3.9 mmol/L (3.5-5.1)
--- OUTSIDE RECORDS SUMMARY | 2019-10-01 06:02 | XMS REPORT | Clinical Summary ---
:1945 Author Organization [facility] Address [address] [place] [address] Care Team Providers Name Role Phone Unavailable Primary Care Provider Unavailable Allergies Not on File Medications Not on file Active Problems Not on file Social History Tobacco Use Types Packs/Day Years Used Date Never Assessed Sex Assigned at Date Recorded Not on file Job Start Date Occupation Industry Not on file Not on file Not on file Travel History Travel Start Travel End No recent travel history available. Last Filed Vital Signs Not on file Plan of Treatment Health Maintenance Due Date Last Done Comments INFLUENZA VACCINE 02/18/2018 Results Not on fileafter 09/30/2018 Insurance Payer Benefit Plan / Subscriber ID Type Phone Address Group [employer] - MEDICARE AETNA MEDICARE O xxxxxxxx [id number] [place] [address]
[2019-10-01] MEDS ORDERED: CEFAZOLIN/SWI 2gm 2 GM/20 ML SYR ONE (06:16)
[2019-10-01] MEDS ORDERED: Ringers Lactate 1,000 ML IV ONE (06:16)
[2019-10-01] MEDS ORDERED: NS 0.9% VIAL 10 ML ONE ×2 (06:55→07:55)
[2019-10-01] MEDS ORDERED: FENTANYL CITR 100 MCG/2 ML ONE (06:55)
[2019-10-01] MEDS ORDERED: dexAMETHasone 10 MG/ML VIAL ONE (06:55)
[2019-10-01] MEDS ORDERED: LIDOCAINE 2% MPF 5 ML VIAL ONE ×2 (06:55→07:34)
[2019-10-01] MEDS ORDERED: ROPLVACAINE HCL 40 ML ONE (06:56)
[2019-10-01] MEDS ORDERED: MIDAZOLAM HCL 2 MG/2 ML INJ ONE (06:56)
[2019-10-01] MEDS ORDERED: EPINEPHRINE/PF 1 MG/ML AMP ONE (06:57)
[2019-10-01] MEDS ORDERED: ROCURONIUM 50 MG/5 ML VIAL IV ONE (07:34)
[2019-10-01] MEDS ORDERED: propofoL 200 MG/20 ML VIAL IV ONE (07:34)
[2019-10-01] MEDS ORDERED: Phenylephrine HCl 10 MG/ML 1 ML VIAL ONE (07:54)
[2019-10-01] MEDS ORDERED: EPHEDRINE SULF 50 MG/ML VIAL ONE (07:55)
[2019-10-01] MEDS ORDERED: GLYCOPYRROLATE 0.2 MG/ML SYR ONE (09:56)
[2019-10-01] MEDS ORDERED: NEOSTIGMINE 1 MG/ML -5 ML ONE (09:59)
[2019-10-01] MEDS ORDERED: ONDANSETRON 4 MG/2 ML VIAL ONE (10:05)
[2019-10-01] MEDS ORDERED: KETOROLAC 30 MG/ML INJ ONE (10:05)
--- NOTE | 2019-10-01 10:14 | P.BOP ---
Preoperative diagnosis: left shoulder rotator cuff tear, impingement Postoperative diagnosis: same, left shoulder SLAP tear, autorupture biceps tendon Primary procedure: left shoulder arthroscopic rotator cuff repair Secondary procedure: left arthroscopic SLAP debridement Other procedure(s): left arthroscopic subacromial decompression Business Associate: NONE,NONE Estimated blood loss: <10 cc Specimen: none Findings: see dictation Anesthesia: General Complications: None Implants: 1 5.5 mm arthrex corkscrew, 2 - 4.75 mm arthrex swivelock Fluids & blood products: per anesthesia record Transferred to: Recovery Room Condition: Good
[2019-10-01 10:58] VITALS: TEMP 97.2
[2019-10-01] MEDS ORDERED: HYDROCODONE/APAP 7.5/325 MG TAB ONE (11:30)
--- NOTE | 2019-10-01 11:34 | RAD REPORT ---
EXAM DESCRIPTION: RAD - Shoulder 1 View - 10/01/2019 11:11 am CLINICAL HISTORY: Right shoulder surgery FINDINGS: Frontal view of the right shoulder was obtained. No fracture or dislocation is seen. Cortical irregularity involves the lateral aspect of the humeral head probably related to the recent surgery.
[2019-10-01 12:59] VITALS: BP 132/8; O2SAT 9
--- NOTE | 2019-10-01 13:56 | OP ---
Date of Procedure: 10/01/2019 Surgeon: Mani Vogt MD Preoperative Diagnoses: 1. Left shoulder rotator cuff tear. 2. Left shoulder impingement syndrome. Postoperative Diagnoses: 1. Left shoulder rotator cuff tear. 2. Left shoulder impingement syndrome. 3. Left shoulder superior labral tear from anterior to posterior tear. 4. Left shoulder biceps tendon auto-rupture. Procedure Performed: 1. Left shoulder arthroscopic rotator cuff repair. 2. Right shoulder arthroscopic superior labral tear from anterior to posterior tear debridement. 3. Left shoulder arthroscopic subcranial decompression. Anesthesia: General endotracheal. Fluids: Per Anesthesia record. Estimated Blood Loss: Less than 10 mL. Complications: None. Implants: 1. 5.5 mm Arthrex corkscrew. 2. 4.75 mm Arthrex SwiveLock. Indication For Procedure: Seymour is a 73-year-old male who presented to my clinic with signs, symptoms, and MRI findings consistent with a left shoulder rotator cuff repair. Patient failed conservative treatment measures and reported continued pain and difficulty with ADLs. I discussed with the patient at length risks and benefits associated with operative and nonoperative treatment. He expressed understanding and elected to proceed with operative treatment. Description Of Procedure: After informed consent was obtained, the patient was identified in the preoperative holding area. His left upper extremity was marked. Patient was taken to the PACU, where he underwent an interscalene block to the left upper extremity performed by Anesthesia and taken back to the operative room and transferred to the operative table in supine fashion and placed under general endotracheal anesthesia. He was placed in a beach chair position with his extremities well padded. The left upper extremity was then examined. The patient had full range of motion. No instability noted of the shoulder joint. Left upper extremity was then prepped and draped in usual sterile fashion. A time-out was initiated. The correct patient and procedure were properly identified. The patient had received his preoperative prophylactic antibiotic via the posterior portal position and spinal needle was introduced in the glenohumeral joint and the joint was injected with 30 mL of normal saline as to distend the capsule. A stab incision was made over the posterior portal position. Arthroscope was introduced under direct visualization. A standard anterior and medial approach was created and the cannula was placed. Diagnostic arthroscopy was performed. Patient was noted to have complex tear of superior labrum with auto-rupture of his biceps tendon. The SLAP tear was then debrided using an arthroscopic shaver. Anterior and posterior labrum were found to be stable to probe. There were no loose bodies within the axillary pouch. There were fraying noted on the superior margin of the subscap tendon. This was debrided with an arthroscopic shaver. There was no significant chondromalacia noted of the glenoid, surface of the humeral head. The patient was noted to have a full-thickness rotator cuff tear of the anterior supraspinatus. An arthroscopic lateral portal was created. The arthroscopic shaver was introduced. There was the entrance of the joint via the lateral portal consistent with the full-thickness tear. The undersurface of the rotator cuff tear was debrided using an arthroscopic shaver as well as greater tuberosity to create a bleeding bony bed. The arthroscope was then brought in the subacromial space. Subacromial bursectomy was performed. The bursal side of the rotator cuff tear was then noted as well. There was significant retraction of the anterior portion, however, there was noted to be a tear that was retracted medially as well as posteriorly. An arthroscopic grasper was brought into the lateral portal and it was noted that the rotator cuff tear could be reduced in the posterior portion of the tendon anteriorly. A single medial row corkscrew was placed. 5.5 mm double loaded corkscrew was placed just lateral to the articular surface. A suture was then passed from anterior to posterior aspect of the rotator cuff tear using a scorpion suture passer. The tendon was repaired to the greater tuberosity using a horizontal mattress fashion from posterior to anterior. There was good overall reduction of the tear. It was then elected to proceed with lateral row fixation that increased surface area of the repair of the greater tuberosity. Two lateral row anchors were placed anterior and posterior with crisscross sutures from the medial row repair. There was good reduction of the rotator cuff tear on the footprint and using the central nylon suture reinforcement were made both anterior and posteriorly and by passing the suture through the anterior and posterior aspect of the rotator cuff tear. Next, attention was taken to the subacromial decompression. Undersurface of the acromion was then debrided using the arthroscopic radiofrequency ablator. Using an arthroscopic bur, acromioplasty was made over the anterolateral undersurface of the acromion. Arthroscopic instruments were then removed without complication. Wounds were then irrigated thoroughly with normal saline. Subcutaneous tissue was approximated using 2-0 Vicryl. Skin was approximated using 3-0 Monocryl. Sterile dressings were applied. The patient was placed in a shoulder immobilizer, awakened, and transferred to PACU in stable condition. Postoperative Plan: Nonweightbearing of his left upper extremity, will remains in a shoulder immobilizer for 6 weeks. Began this therapy for large rotator cuff tear protocol. RAINA/SALLY Voice ID: [id number] Report ID: [id number] [facility]
== END 2019-10-01 12:30 | disposition home or self-care (01) ==
LOC: OR 06:00
PROVIDERS: ATTEND Orthopaedic Surgery Sports Medicine
PROC: 0RHK44Z Insertion of Internal Fixation Device into Left Shoulder Joint, Percutaneous Endoscopic Approach (ICD-10-PCS; 2019-10-01)
PROC: 0RNK4ZZ Release Left Shoulder Joint, Percutaneous Endoscopic Approach (ICD-10-PCS; 2019-10-01)
PROC: 0RBK4ZZ Excision of Left Shoulder Joint, Percutaneous Endoscopic Approach (ICD-10-PCS; 2019-10-01)
PROC: 0LQ24ZZ Repair Left Shoulder Tendon, Percutaneous Endoscopic Approach (ICD-10-PCS; principal; 2019-10-01 07:30)
DX: M75.102 Unspecified rotator cuff tear or rupture of left shoulder, not specified as traumatic (principal); M75.42 Impingement syndrome of left shoulder; S43.432A Superior glenoid labrum lesion of left shoulder, initial encounter; S46.212A Strain of muscle, fascia and tendon of other parts of biceps, left arm, initial encounter; M75.22 Bicipital tendinitis, left shoulder; I11.0 Hypertensive heart disease with heart failure; I50.9 Heart failure, unspecified; I48.91 Unspecified atrial fibrillation; I25.810 Atherosclerosis of coronary artery bypass graft(s) without angina pectoris; E78.5 Hyperlipidemia, unspecified; E66.9 Obesity, unspecified; Z68.33 Body mass index [BMI] 33.0-33.9, adult; Z79.82 Long term (current) use of aspirin; Z90.49 Acquired absence of other specified parts of digestive tract; Z82.49 Family history of ischemic heart disease and other diseases of the circulatory system
CPT/HCPCS: 85025; 80048; 36415; 85610; 85730; 71046; 73020; 29827; 29826; 29822; J2704; J0171; J2370; J2250; J3010; J1100; J2795; J2710; J0690; J7120; J2405

== ENCOUNTER 2020-08-18 07:14 | Day surgery (SDC) | payer OTHER ==
[2020-08-12 11:10] LABS: Absolute Lymphocytes (CBC) 1.7 K/uL (0.7-4.9); Basophils % 0.5 % (0-1.3); Lymphocytes % 28.2 % (15.3-44.8); MPV 9.6 fL (7.6-11.3); RBC Red Blood Cell Count 3.79 M/uL (4.33-5.43)
[2020-08-12 11:17] LABS: Protime INR 1.82
[2020-08-12 11:22] LABS: Potassium 4.2 mmol/L (3.5-5.1)
[2020-08-18] MEDS ORDERED: CEFAZOLIN/SWI 1gm 1 GM/10 ML SYR ONE (07:48)
[2020-08-18] MEDS ORDERED: Ringers Lactate 1,000 ML IV ONE (07:48)
[2020-08-18] MEDS ORDERED: KETOROLAC 30 MG/ML INJ ONE (08:13)
[2020-08-18] MEDS ORDERED: propofoL 200 MG/20 ML VIAL IV ONE (08:13)
[2020-08-18] MEDS ORDERED: MIDAZOLAM HCL 2 MG/2 ML INJ ONE (08:13)
[2020-08-18] MEDS ORDERED: FENTANYL CITR 100 MCG/2 ML ONE (08:13)
[2020-08-18] MEDS ORDERED: LIDOCAINE 1% MPF 5 ML VIAL ONE (08:13)
[2020-08-18] MEDS ORDERED: BUPIVACAINE 0.25% PF 10 ML VIAL ONE (08:30)
[2020-08-18] MEDS: BUPIVACAINE 0.25% PF 10 ML VIAL ONE ×2 (08:51→09:03)
[2020-08-18] MEDS ORDERED: EPHEDRINE SULF 50 MG/ML VIAL ONE (08:56)
--- NOTE | 2020-08-18 09:16 | P.BOP ---
Preoperative diagnosis: right carpal tunnel syndrome Postoperative diagnosis: same Primary procedure: right open carpal tunnel release Reflow Operator: NONE,NONE Estimated blood loss: 3 cc Specimen: none Findings: see dictation Anesthesia: General Complications: None Implants: none Fluids & blood products: per anesthesia record; TT: 18 mins @ 250 mmHg Transferred to: Recovery Room Condition: Good
[2020-08-18 11:19] VITALS: TEMP 96.5; O2SAT 99
[2020-08-18 11:20] VITALS: BP 102/58
--- NOTE | 2020-08-18 21:32 | OP ---
Date of Procedure: 08/18/2020 Surgeon: Mani Vogt MD Preoperative Diagnosis: Right carpal tunnel syndrome. Postoperative Diagnosis: Right carpal tunnel syndrome. Procedure Performed: Right open carpal tunnel release. Anesthesia: General, LMA. Fluids: Per Anesthesia record. Ebl: 3 cc. Tourniquet Time: 18 minutes at 250 mmHg. Indication For Procedure: Seymour is a 74-year-old male who presented to my clinic with signs, sympt oms, and EMG findings consistent with right carpal tunnel syndrome. Patient failed conservative julio c tment measures and had significant pain and difficulties with his activities of daily living. After discussion with the patient of risks and benefits associated with operative and nonoperative treatmen t, he expressed understanding and elected to proceed with operative treatment. Description Of Procedure: After informed consent was obtained, the patient was identified in the pre operative holding area. The right upper extremity was marked. The patient was then brought back to the operating room, transferred to the operating table in a supine fashion and placed under general L MA anesthesia. The right upper extremity was then prepped and draped in usual sterile fashion. A ti me-out was initiated. The correct patient and procedure confirmed and identified. The patient did r eceive his preoperative prophylactic antibiotics. The right upper extremity was then exsanguinated. The tourniquet was inflated to 250 mmHg. Approximately, a 3 cm longitudinal incision was made just ulnar to the thenar crease. Dissection was then taken down to the palmar fascia, which was identifie d. A Empire elevator was then placed just deep to the palmar fascia and transverse carpal ligament pr otecting the median nerve at all times. A 15 blade was then used to release the palmar fascia as wel l as transverse carpal ligament on top of the Empire elevator with elevator protecting the median nerv e. Smooth tip Metzenbaums were then used with the tips aimed superficially to release any remaining fascial bands. The wound was then irrigated thoroughly with normal saline. The skin was approximate d using a 5-0 Prolene. Sterile dressings were applied. Tourniquet was let down. The patient was aw akened and transferred to PACU in stable condition. Postoperative Plan: The patient will be nonweightbearing of his right upper extremity. He will foll ow up in my clinic in 1 to 2 weeks for wound check and suture removal. CV/MODL Voice ID: [id number] Report ID: [id number]
== END 2020-08-18 10:30 | disposition home or self-care (01) ==
LOC: OR 07:14
PROVIDERS: ATTEND Orthopaedic Surgery Sports Medicine
PROC: 01N50ZZ Release Median Nerve, Open Approach (ICD-10-PCS; principal; 2020-08-18 08:30)
DX: G56.01 Carpal tunnel syndrome, right upper limb (principal); Z20.822 Contact with and (suspected) exposure to COVID-19
CPT/HCPCS: 93005; 85025; 80048; 36415; 85610; 85730; 64721; U0002; J2704; J2250; J3010; J0690; J7120

== ENCOUNTER 2021-03-03 11:07 | Emergency (ER) | payer OTHER ==
--- NOTE | 2021-03-03 12:02 | EDPHYS ---
Physician Documentation [facility] Name: Seymour Osuna Age: 75 yrs Sex: Male : 1945 Arrival Date: 03/03/2021 Time: 11:10 Bed 4 Private MD: ED Physician Leon Pendleton HPI: 03/03 11:53 This 75 yrs old Male presents to ER via EMS with complaints of Fall Injury, jocelyn Closed Head Injury-Adult. 11:53 Details of fall: The patient fell from an upright position, while walking. Onset: The jocelyn symptoms/episode began/occurred just prior to arrival, this morning. Associated injuries: The patient sustained injury to the head, neck injury. Severity of symptoms: At their worst the symptoms were moderate, in the emergency department the symptoms are unchanged. The patient has not experienced similar symptoms in the past. Historical: - Allergies: 11:13 No Known Allergies; ll1 - PMHx: 11:13 Hypertensive disorder; Hypercholesterolemia; ll1 - PSHx: 11:13 Coronary artery bypass graft; hernia repair x 2; back and knee SX; ll1 - Immunization history:: Client reports receiving the 2nd dose of the Covid vaccine. - Social history:: Smoking status: Patient denies any tobacco usage or history of. ROS: 11:53 Constitutional: Negative for fever, chills, and weight loss, Eyes: Negative for injury, jocelyn pain, redness, and discharge, ENT: Negative for injury, pain, and discharge, Neck: Negative for injury, pain, and swelling, Respiratory: Negative for shortness of breath, cough, wheezing, and pleuritic chest pain, Abdomen/GI: Negative for abdominal pain, nausea, vomiting, diarrhea, and constipation, Back: Negative for injury and pain, : Negative for injury, bleeding, discharge, and swelling, MS/Extremity: Negative for injury and deformity, Skin: Negative for injury, rash, and discoloration, Neuro: Negative for headache, weakness, numbness, tingling, and seizure, Psych: Negative for depression, anxiety, suicide ideation, homicidal ideation, and hallucinations, Allergy/Immunology: Negative for hives, rash, and allergies, Endocrine: Negative for neck swelling, polydipsia, polyuria, polyphagia, and marked weight changes, Hematologic/Lymphatic: Negative for swollen nodes, abnormal bleeding, and unusual bruising. 11:53 Cardiovascular: Positive for palpitations. Exam: 11:53 Constitutional: This is a well developed, well nourished patient who is awake, alert, jocelyn and in no acute distress. Head/Face: Normocephalic, atraumatic. Eyes: Pupils equal round and reactive to light, extra-ocular motions intact. Lids and lashes normal. Conjunctiva and sclera are non-icteric and not injected. Cornea within normal limits. Periorbital areas with no swelling, redness, or edema. ENT: Nares patent. No nasal discharge, no septal abnormalities noted. Tympanic membranes are normal and external auditory canals are clear. Oropharynx with no redness, swelling, or masses, exudates, or evidence of obstruction, uvula midline. Mucous membranes moist. Neck: Trachea midline, no thyromegaly or masses palpated, and no cervical lymphadenopathy. Supple, full range of motion without nuchal rigidity, or vertebral point tenderness. No Meningismus. Chest/axilla: Normal chest wall appearance and motion. Nontender with no deformity. No lesions are appreciated. Respiratory: Lungs have equal breath sounds bilaterally, clear to auscultation and percussion. No rales, rhonchi or wheezes noted. No increased work of breathing, no retractions or nasal flaring. Abdomen/GI: Soft, non-tender, with normal bowel sounds. No distension or tympany. No guarding or rebound. No evidence of tenderness throughout. Back: No spinal tenderness. No costovertebral tenderness. Full range of motion. Male : Normal genitalia with no discharge or lesions. Skin: Warm, dry with normal turgor. Normal color with no rashes, no lesions, and no evidence of cellulitis. MS/ Extremity: Pulses equal, no cyanosis. Neurovascular intact. Full, normal range of motion. Neuro: Awake and alert, GCS 15, oriented to person, place, time, and situation. Cranial nerves II-XII grossly intact. Motor strength 5/5 in all extremities. Sensory grossly intact. Cerebellar exam normal. Normal gait. Psych: Awake, alert, with orientation to person, place and time. Behavior, mood, and affect are within normal limits. 11:53 Cardiovascular: Rate: actual rate is 73 bpm, Rhythm: irregularly irregular, Pulses: Pulses are 4+ in bilateral radial, brachial, femoral, popliteal, posterior tibial and and dorsalis pedis arteries.. Heart sounds: normal, Edema: is not appreciated, JVD: is not appreciated. 11:53 ECG was reviewed by the Attending Physician. Vital Signs: 11:10 Weight 92.99 kg; Height 5 ft. 6 in. (167.64 cm); Pain 3/10; ll1 11:22 BP 97 / 54; Pulse 80; Resp 18; Temp 98.6; Pulse Ox 97% on R/A; ll1 12:00 BP 106 / 69; Pulse 114; Resp 18; Pulse Ox 97% on R/A; tw2 12:52 BP 114 / 72; Pulse 82; Resp 17; Pulse Ox 100% on R/A; tw2 13:30 BP 127 / 81; Pulse 82; Resp 20; Pulse Ox 100% on Nebulizer Mask; tw2 14:25 BP 118 / 77; Pulse 104; Resp 21; Pulse Ox 98% on R/A; tw2 15:08 BP 118 / 71; Pulse 97; Resp 20; Pulse Ox 99% on R/A; ch5 11:10 Body Mass Index 33.09 (92.99 kg, 167.64 cm) ll1 MDM: 11:33 Patient medically screened. jocelyn 11:56 Differential diagnosis: closed head injury, contusion, sprain, GI bleed, idiopathic jocelyn syncope. Data reviewed: vital signs, nurses notes, lab test result(s), EKG, radiologic studies, CT scan, plain films. 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 Test interpretation: by ED physician or midlevel provider: ECG, plain radiologic studies. Counseling: I had a detailed discussion with the patient and/or guardian regarding: the historical points, exam findings, and any diagnostic results supporting the discharge/admit diagnosis, lab results, radiology results, the need to transfer to another facility, for higher level of care, [facility] does not immediately have the required specialist. 03/03 11:34 Order name: Basic Metabolic Panel; Complete Time: 12:27 jocelyn 03/03 11:34 Order name: CBC with Diff; Complete Time: 12:27 jocelyn 03/03 11:34 Order name: LFT's; Complete Time: 12:27 jocelyn 03/03 11:34 Order name: Magnesium; Complete Time: 12:27 [facility] 03/03 11:34 Order name: NT PRO-BNP; Complete Time: 12:27 [facility] 03/03 11:34 Order name: PT-INR; Complete Time: 12:27 [facility] 03/03 11:34 Order name: Troponin (emerg Dept Use Only); Complete Time: 12:27 [facility] 03/03 11:34 Order name: XRAY Chest (1 view) [facility] 03/03 11:34 Order name: CT Head C Spine; Complete Time: 12:53 [facility] 03/03 12:17 Order name: SARS-COV-2 RT PCR [facility] 03/03 13:17 Order name: Urine Dipstick-Ancillary [facility] 03/03 11:34 Order name: EKG; Complete Time: 11:35 [facility] 03/03 11:34 Order name: Cardiac monitoring; Complete Time: 12:02 [facility] 03/03 11:34 Order name: EKG - Nurse/Tech; Complete Time: 12:02 [facility] 03/03 11:34 Order name: IV Saline Lock; Complete Time: 12:11 [facility] 03/03 11:34 Order name: Labs collected and sent; Complete Time: 12:11 [facility] 03/03 11:34 Order name: O2 Per Protocol; Complete Time: 12:10 [facility] 03/03 11:34 Order name: O2 Sat Monitoring; Complete Time: 12:10 [facility] 03/03 11:34 Order name: Urine Dipstick-Ancillary (obtain specimen); Complete Time: 13:28 [facility] 03/03 11:49 Order name: Misc. Order: PACER PADS; Complete Time: 12:10 [facility] EC:53 Rate is 73 beats/min. Rhythm is irregularly irregular. QRS [place] is Normal. GA interval jocelyn is normal. QRS interval is normal. QT interval is normal. No Q waves. T waves are Normal. No ST changes noted. Clinical impression: Atrial Fibrillation. Interpreted by me. Reviewed by me. Administered Medications: 12:04 Drug: NS 0.9% 500 ml Route: IV; Rate: bolus; Site: right antecubital; ch5 13:03 Follow up: Response: No adverse reaction; IV Status: Completed infusion; IV Intake: tw2 500ml 12:04 Drug: NS 0.9% 1000 ml Route: IV; Rate: 125 ml/hr; Site: right antecubital; ch5 12:04 Drug: Atropine 0.5 mg Route: IVP; Site: right antecubital; 5 12:15 Drug: Glucagon 1 mg Route: IVP; Site: right antecubital; 5 12:22 Drug: Albuterol 2.5 mg Route: Inhalation; ch5 13:25 Drug: Albuterol 2.5 mg Route: Inhalation; tw2 Disposition Summary: 03/03/21 12:01 Transfer Ordered Transfer Location: [facility] jocelyn Reason: Higher level of care jocelyn Condition: Fair jocelyn Problem: new jocelyn Symptoms: have improved jocelyn Accepting Physician: TO [facility](03/03/21 16:43) tw2 Diagnosis - Chronic atrial fibrillation - with SVR jocelyn - Syncope Near jocelyn - Fall on same level, unspecified jocelyn - Dizziness and giddiness jocelyn Forms: - Medication Reconciliation Form jocelyn - SBAR form jocelyn Signatures: Dispatcher [employer] EDMS Leon Pendleton MD MD cha Wise, Tara RN RN tw2 Pramod Gabriel RN RN 1 Hemant Andrade RN RN ch5 Corrections: (The following items were deleted from the chart) 12:02 12:01 TO [facility] 12:17 12:01 CORONAVIRUS+MR.LAB.BRZ ordered. [facility] 16:43 12:02 TO [facility]2
--- NOTE | 2021-03-03 12:02 | ER ---
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 Takes Eloquis, denies LOC. Reggie any other injuries. Coronavirus screen: Vaccine status: Patient reports receiving the 2nd dose of the covid vaccine. Client denies travel out of the [place] in the last 14 days. At this time, the client does not indicate any symptoms associated with coronavirus-19. Ebola Screen: Patient denies travel to an Ebola-affected area in the 21 days before illness onset. Initial Sepsis Screen: Does the patient meet any 2 criteria? No. Patient's initial sepsis screen is negative. Does the patient have a suspected source of infection? No. Patient's initial sepsis screen is negative. Risk Assessment: Do you want to hurt yourself or someone else? Patient reports no desire to harm self or others. Onset of symptoms was March 03, 2021. 11:10 Method Of Arrival: EMS: [facility] 11:10 Acuity: PETTY 3 ll1 Historical: - Allergies: 11:13 No Known Allergies; ll1 - PMHx: 11:13 Hypertensive disorder; Hypercholesterolemia; ll1 - PSHx: 11:13 Coronary artery bypass graft; hernia repair x 2; back and knee SX; ll1 - Immunization history:: Client reports receiving the 2nd dose of the Covid vaccine. - Social history:: Smoking status: Patient denies any tobacco usage or history of. Screenin:52 Abuse screen: Denies threats or abuse. Nutritional screening: On. Tuberculosis tw2 screening: No symptoms or risk factors identified. Fall Risk None identified. Assessment: 12:54 Reassessment: Patient appears in no apparent distress at this time. No changes from tw2 previously documented assessment. Patient and/or family updated on plan of care and expected duration. Pain level reassessed. Patient is alert, oriented x 3, equal unlabored respirations, skin warm/dry/pink. 14:26 Reassessment: Patient appears in no apparent distress at this time. No changes from tw2 previously documented assessment. Patient and/or family updated on plan of care and expected duration. Pain level reassessed. Patient is alert, oriented x 3, equal unlabored respirations, skin warm/dry/pink. pt requesting update on results and plan of care. provider notified to update pt with results and poc. Vital Signs: 11:10 Weight 92.99 kg; Height 5 ft. 6 in. (167.64 cm); Pain 3/10; ll1 11:22 BP 97 / 54; Pulse 80; Resp 18; Temp 98.6; Pulse Ox 97% on R/A; ll1 12:00 BP 106 / 69; Pulse 114; Resp 18; Pulse Ox 97% on R/A; tw2 12:52 BP 114 / 72; Pulse 82; Resp 17; Pulse Ox 100% on R/A; tw2 13:30 BP 127 / 81; Pulse 82; Resp 20; Pulse Ox 100% on Nebulizer Mask; tw2 14:25 BP 118 / 77; Pulse 104; Resp 21; Pulse Ox 98% on R/A; tw2 15:08 BP 118 / 71; Pulse 97; Resp 20; Pulse Ox 99% on R/A; ch5 11:10 Body Mass Index 33.09 (92.99 kg, 167.64 cm) ll1 ED Course: 11:10 Patient arrived in ED. ll1 11:13 Triage completed. ll1 11:14 Arm band placed on Patient placed in an exam room, on a stretcher. ll1 11:33 Leon Pendleton MD is Attending Physician. [facility] 11:52 Hemant Andrade, JUDE is Primary Nurse. ch5 11:56 initiated transfer to [facility]. bd 12:02 Patient has correct armband on for positive identification. Bed in low position. [facility] light in reach. Side rails up X 1. Side rails up X2. Adult w/ patient. Warm blanket given. food and beverage analyst on. Pulse ox on. NIBP on. 12:03 Initial lab(s) drawn, by ED staff, sent to lab. EKG done, by ED staff, reviewed by viral Pendleton MD. 12:11 CT Head C Spine In Process Unspecified. EDMS 13:13 XRAY Chest (1 view) In Process Unspecified. EDMS 14:53 pt accepted in transfer to [facility] by dr yuliet terrell, admin approval given bd by Gauri Dobson. 15:11 Report given to Lauren ROQUE at [facility]. ch5 Administered Medications: 12:04 Drug: NS 0.9% 500 ml Route: IV; Rate: bolus; Site: right antecubital; ch5 13:03 Follow up: Response: No adverse reaction; IV Status: Completed infusion; IV Intake: tw2 500ml 12:04 Drug: NS 0.9% 1000 ml Route: IV; Rate: 125 ml/hr; Site: right antecubital; ch5 12:04 Drug: Atropine 0.5 mg Route: IVP; Site: right antecubital; ch5 12:15 Drug: Glucagon 1 mg Route: IVP; Site: right antecubital; ch5 12:22 Drug: Albuterol 2.5 mg Route: Inhalation; ch5 13:25 Drug: Albuterol 2.5 mg Route: Inhalation; tw2 Intake: 13:03 IV: 500ml; Total: 500ml. tw2 Outcome: 12:01 ER care complete, transfer ordered by MD. banks 16:43 Patient left the ED. tw2 Signatures: Dispatcher [employer] EDAzalea Dudley Corey, MD MD cha Wise, Tara, RN RN tw2 Ninoska Zaldivar Pramod Merritt RN RN ll1 Hemant Andrade RN RN ch5 Corrections: (The following items were deleted from the chart) 13:41 13:25 Albuterol 2.5 mg Inhalation ch5 ch5
[2021-03-03 12:03] LABS: Absolute Lymphocytes (CBC) 1.2 K/uL (0.7-4.9); Basophils % 0.8 % (0-1.3); Hematocrit 33.1 % (39.6-49.0); Lymphocytes % 21.8 % (15.3-44.8); MPV 8.8 fL (7.6-11.3); RBC Red Blood Cell Count 3.93 M/uL (4.33-5.43)
[2021-03-03 12:10] LABS: Protime INR 2.05
[2021-03-03] MEDS ORDERED: NA CHLORIDE 0.9% 500 ML ONE (12:20)
[2021-03-03] MEDS ORDERED: ATROPINE SULF 1 MG/10 ML SYR IV ONE (12:20)
[2021-03-03] MEDS ORDERED: ALBUTEROL 2.5 MG/3 ML NEB SOL ONE ×2 (12:20→14:03)
[2021-03-03] MEDS ORDERED: GLUCAGON 1 MG/VIAL ONE (12:20)
[2021-03-03] MEDS ORDERED: NA CHLORIDE 0.9% 1,000 ML ONE (12:20)
[2021-03-03 12:21] LABS: ALT/SGPT 22 U/L (12-78); AST/SGOT 22 U/L (15-37); Albumin 3.3 g/dL (3.4-5.0); Alkaline Phosphatase 132 U/L (45-117); BUN Blood Urea Nitrogen 22 mg/dL (7-18); Bicarbonate 25 mmol/L (21-32); Bilirubin Direct 0.4 mg/dL (0-0.2); Bilirubin Total 0.8 mg/dL (0.2-1.0); Glucose Level 125 mg/dL (74-106); Magnesium 2.2 mg/dL (1.8-2.4); NT PRO-BNP 524 pg/mL (<450); Potassium 3.9 mmol/L (3.5-5.1); Sodium Level 143 mmol/L (136-145); Troponin (Emerg Dept Use Only) < 0.02 ng/mL (0.0-0.045)
--- NOTE | 2021-03-03 12:27 | RAD REPORT ---
EXAM DESCRIPTION: CT - [id number] - 03/03/2021 12:11 pm CLINICAL HISTORY: Trauma, head and neck injury. PAIN COMPARISON: No comparisons TECHNIQUE: Axial 5 mm thick images of the head were obtained. Axial 2 mm thick images of the cervical spine were obtained with sagittal and coronal reconstruction images generated and reviewed. All CT scans are performed using dose optimization technique as appropriate and may include automated exposure control or mA/KV adjustment according to patient size. FINDINGS: CT HEAD WITHOUT CONTRAST: No acute hemorrhage, hydrocephalus or extra-axial collection is identified.No areas of brain edema or midline shift. Occluded right maxillary sinus.The calvarium is intact. CT CERVICAL SPINE WITHOUT CONTRAST: No fracture or subluxation.Multilevel cervical spondylosis with varying degrees of neural foraminal n arrowing.No prevertebral soft tissues swelling is identified. Carotid artery calcifications. Partial fusion of the posterior elements at C2-3. IMPRESSION: No acute intracranial or cervical spine findings.
[2021-03-03 13:17] LABS: Urine Blood Negative (Negative); Urine Glucose 3+ (Negative); Urine Protein Negative (Negative); Urine Specific Gravity 1.025 (1.005-1.030)
--- NOTE | 2021-03-03 13:46 | RAD REPORT ---
EXAM DESCRIPTION: RAD - Chest Single View - 03/03/2021 1:13 pm CLINICAL HISTORY: COUGH Chest pain. COMPARISON: Chest Pa And Lat (2 Views) dated 09/25/2019; Chest Pa And Lat (2 Views) dated 10/09/2018 FINDINGS: Portable technique limits examination quality. The lungs are grossly clear. The heart is moderately enlarged in size with changes of a prior CABG. N o displaced fractures.
[2021-03-03 16:59] VITALS: TEMP 98.6
[2021-03-03 17:06] VITALS: BP 118/71; O2SAT 99
--- NOTE | 2021-03-05 11:49 | EKG ---
Test Date: 2021-03-03 Test Time: 11:55:17 Full Stack Python Developer: JEN MEASUREMENT RESULTS: Intervals: Rate: 73 MI: QRSD: 84 QT: 452 QTc: 497 [place]: P: MI: QRS: 80 T: 268 INTERPRETIVE STATEMENTS: Atrial fibrillation with premature ventricular or aberrantly conducted complexes Low voltage QRS Nonspecific ST and T wave abnormality, probably digitalis effect Prolonged QT Abnormal ECG Compared to ECG 08/18/2020 07:03:59 Ventricular premature complex(es) now present ST (T wave) deviation still present Electronically Signed On 03-05-21 11:45:13 CDT by Baldomero Yates
== END 2021-03-03 16:43 | disposition short-term general hospital (02) ==
LOC: ER 11:07
DX: I48.20 Chronic atrial fibrillation, unspecified (principal); R42 Dizziness and giddiness; W18.30XA Fall on same level, unspecified, initial encounter; Y93.01 Activity, walking, marching and hiking; I10 Essential (primary) hypertension; Z95.1 Presence of aortocoronary bypass graft; Z20.822 Contact with and (suspected) exposure to COVID-19
CPT/HCPCS: 96361; 93005; 85025; 80048; 36415; 83735; 85610; 80076; 81003; 84484; 83880; 70450; 72125; 71045; 96375; 96374; 99285; U0003; J1610; J7040; J7030

== ENCOUNTER 2021-05-11 12:04 | Day surgery (SDC) | payer OTHER ==
--- OUTSIDE RECORDS SUMMARY | 2021-05-11 12:09 | XMS REPORT | Continuity of Care Document ---
:1945 Author Organization [facility] t Address [address] [place] [address] Care Team Providers Name Role Phone Reuben Quezada Attending Clinician Unavailable COLE Attending Clinician Unavailable WENDY CARDONA Attending Clinician Unavailable UNKNOWN Attending Clinician Unavailable MAGGIE JULIEN Attending Clinician Unavailable Radha BAKER Attending Clinician Unavailable Cole MAX Attending Clinician Doctor Unassigned, Name Attending Clinician Unavailable Only, Test Attending Clinician Unavailable Pob, Lab Main Attending Clinician Unavailable ANTONIO Attending Clinician Unavailable Eusebio Quezada Admitting Clinician Unavailable Physician, Primary or Family Admitting Clinician Unavailbenito GALVAN Admitting Clinician Unavailable WENDY CARDONA Admitting Clinician Unavailable Radha BAKER Admitting Clinician Unavailable Cole MAX Admitting Clinician Payers Payer Name Policy Type Policy Number Effective Date Expiration Date S luluce AETNA MEDICARE ADV [id number] 2020 00:00:00 AETNA MEDICARE HMO [id number] 2019 POS PPO 00:00:00 Problems Condition Condition Condition Status Onset Resolution Last Treating Co mments Source Name Details Category Date Date Treatment Clinician Date Carpal Problem Active 2020-03-19 [facility] 01:18:22 l syndrome Carpal Negrito n (disorder) tunnel syndrome (disorder) Active Problem 03/19/2020 [facility] Allergies, Adverse Reactions, Alerts Allergy Allergy Status Severity Reaction(s) Onset Inactive Treating Comm ents Source Name Type Date Date Clinician No Known DA Active U 2020-05 [facility] Allergie 06-08 [facility] 00:00: Health 00 [facility] Center NO KNOWN Drug Active Univers ALLERGIE Class ity of S [facility] NO KNOWN All[facility] Social History Social Habit Start Date Stop Date Quantity Comments Source History of Cigar Smoker University o f tobacco use [facility] Exposure to Not sure [facility] SARS-CoV-2 [facility] (event) [place] Tobacco use and 2020-08-26 2020-08-26 Never used Universit y of exposure 00:00:00 00:00:00 [facility] Alcohol intake 2020-08-26 2020-08-26 Current drinker Unive rsity of 00:00:00 00:00:[address] [facility] (finding) [place] Social History 2020-03-17 2020-03-17 [facility] marlenbanner 04:59:59 04:59:59 Sex [birth year] Universit y of 00:00:00 00:00:00 [facility] Smoking Status Start Date Stop Date Source Former smoker 2020-08-26 00:00:00 2020-08-26 00:00:00 Universi ty [facility] Medications Ordered Filled Start Stop Current Ordering Indication Dosage Frequency Signature Comments Components Source Medication Medication Date Date Medication? Clinician (SIG) Name Name potassium Yes 20meq Take 20 Univ ers chloride 20 4-08 mEq by ity of mEq packet 15[place]49[place] times Branch daily. aspirin Yes 81mg Take 81 mg Univ ers (ASPIRIN 4-08 by mouth ity of LOW DOSE) 15:49: daily. [place] 81 mg EC Medical tablet Branch metoprolol Yes 100mg Take 100 Un fidelia succinate 4-08 mg by ity of XL 100 mg 15:49: mouth 2 [place] 24 hr 01 (two) Medical tablet times Branch daily. simvastatin 2020-0 Yes 20mg Take 20 mg Univers 20 mg 4-08 by mouth ity of tablet 15:49: at [place] bedtime. Medical Branch apixaban 0 Yes 5mg Take 5 mg Univ ers (ELIQUIS) 5 4-08 by mouth 2 it y of mg tablet 15:49: (two) [place] times Medical daily. Branch allopurinoL 0 Yes 300mg Take 300 U nivers 300 mg 4-08 mg by ity of tablet 15:49: mouth [place] daily. Medical Branch lisinopriL 0 Yes 10mg Take 10 mg U nivers 10 mg 4-08 by mouth ity of tablet 15:49: daily. [place] Medical Branch furosemide 2020-0 Yes 20mg Take 20 mg U nivers (LASIX) 20 4-08 by mouth ity o f mg tablet 15:49: every [place] morning Medical and Branch evening. rosuvastati 2020-0 Yes 20mg Take 20 mg Univers n 20 mg 4-08 by mouth ity of tablet 15:49: at [place] bedtime. Medical Branch ALPRAZolam 0 Yes .25mg Take 0.25 U nivers (XANAX) 4-08 mg by ity of 0.25 mg 15:49: mouth 2 [place] tablet 01 (two) Medical times Branch daily. potassium 0 Yes 20meq Take 20 Univ ers chloride 20 4-08 mEq by ity of mEq packet 15:49: [place] (two) Medical times Branch daily. aspirin 2020-0 Yes 81mg Take 81 mg Univ ers (ASPIRIN 4-08 by mouth ity of LOW DOSE) 15:49: daily. [place] 81 mg EC Medical tablet Branch metoprolol 2020-0 Yes 100mg Take 100 Un fidelia succinate 4-08 mg by ity of XL 100 mg 15:49: mouth 2 [place] 24 hr (two) Medical tablet times Branch daily. simvastatin 2020-0 Yes 20mg Take 20 mg Univers 20 mg 4-08 by mouth ity of tablet 15:49: at [place] [id number] bedtime. Medical Branch apixaban 2020-0 Yes 5mg Take 5 mg Univ ers (ELIQUIS) 5 4-08 by mouth 2 it y of mg tablet 15:49: (two) [place] times Medical daily. Branch allopurinoL Yes 300mg Take 300 U nivers 300 mg 4-08 mg by ity of tablet 15:49: mouth daily. Medical Branch lisinopriL Yes 10mg Take 10 mg U nivers 10 mg 4-08 by mouth ity of tablet 15:49: daily. Medical Branch furosemide 0 Yes 20mg Take 20 mg U nivers (LASIX) 20 4-08 by mouth ity o f mg tablet 15:49: every morning Medical and Branch evening. rosuvastati Yes 20mg Take 20 mg Univers n 20 mg 4-08 by mouth ity of tablet 15:49: at bedtime. Medical Branch ALPRAZolam Yes .25mg Take 0.25 U nivers (XANAX) 4-08 mg by ity of 0.25 mg 15:49: mouth 2 [place] tablet 01 (two) Medical times Branch daily. potassium Yes 20meq Take 20 Univ ers chloride 20 4-08 mEq by ity of mEq packet 15:49: mouth [place] 01 (two) Medical times Branch daily. aspirin Yes 81mg Take 81 mg Univ ers (ASPIRIN 4-08 by mouth ity of LOW DOSE) 15:49: daily. [place] 81 mg EC Medical tablet Branch metoprolol Yes 100mg Take 100 Un fidelia succinate 4-08 mg by ity of XL 100 mg 15:49: mouth 2 [place] 24 hr 01 (two) Medical tablet times Branch daily. simvastatin Yes 20mg Take 20 mg Univers 20 mg 4-08 by mouth ity of tablet 15:49: at [place] bedtime. Medical Branch apixaban Yes 5mg Take 5 mg Univ ers (ELIQUIS) 5 4-08 by mouth 2 it y of mg tablet 15:49: (two) times Medical daily. Branch allopurinoL Yes 300mg Take 300 U nivers 300 mg 4-08 mg by ity of tablet 15:49: mouth [place] daily. Medical Branch lisinopriL 0 Yes 10mg Take 10 mg U nivers 10 mg 4-08 by mouth ity of tablet 15:49: daily. [place] Medical Branch furosemide Yes 20mg Take 20 mg U nivers (LASIX) 20 4-08 by mouth ity o f mg tablet 15:49: every [place] morning Medical and Branch evening. rosuvastati Yes 20mg Take 20 mg Univers n 20 mg 4-08 by mouth ity of tablet 15:49: at [place] bedtime. Medical Branch ALPRAZolam Yes .25mg Take 0.25 U nivers (XANAX) 4-08 mg by ity of 0.25 mg 15:49: mouth 2 [place] tablet 01 (two) Medical times Branch daily. HYDROcodone Yes 1{tbl} 1 tablet, Univers -acetaminop 4-08 Oral, ity of hen (NORCO) 14:42: Q6HPRN, Decl[place] as 10-325 mg 47 Starting Medica l tablet 1 [facility] 08/26/20 Branc h tablet at 0942, Until Discontinu ed, Routine, Pain (scale 7-10), DSU Recovery acetaminoph Yes 1{tbl} 1 tablet, Univers en-codeine 4-08 Oral, PRN, ity of (TYLENOL 14:42: 1 dose, [place] #3) 300-30 47 Starting Medic al mg tablet 1 Sun08/26/20 Br anch tablet at 0942, Until Discontinu ed, Routine, Pain (scale 4-6), DSU Recovery acetaminoph Yes 650mg 650 mg, Un fidelia en 4-08 Oral, ity of (TYLENOL) 14:42: Q6HPRN, [place] tablet 650 47 Starting Medic al mg [facility] 08/26/20 Branch at 0942, Until Discontinu ed, Routine, Pain (scale 1-3), DSU Recovery HYDROcodone 2020- No 1{tbl} 1 tablet, Univers -acetaminop 4-08 04-08 Oral, ity of hen (NORCO) 14:42: 17:49 Q6[place]PRN, [place] 10-325 mg 47 :01 Starting Medica l tablet 1 [facility] 08/26/20 Branc h tablet at 0942, Until [facility] 08/26/20 at 1249, Routine, Pain (scale 7-10), DSU Recovery acetaminoph 2020- No 1{tbl} 1 tablet, Univers en-codeine 08-26- Oral, PRN, it y of (TYLENOL 14:42: 17:49 1 dose, [place] #3) 300-30 47 :01 Starting Medic al mg tablet 1 [facility] 08/26/20 Br anch tablet at 0942, Until [facility] 08/26/20 at 1249, Routine, Pain (scale 4-6), DSU Recovery acetaminoph 2020- No 650mg 650 mg, U nivers en 08-26-08 Oral, ity of (TYLENOL) 14:42: 17:49 Q6HPRN, [place] tablet 650 47 :01 Starting Medic al mg [facility] 08/26/20 Branch at 0942, Until [facility] 08/26/20 at 1249, Routine, Pain (scale 1-3), DSU Recovery bupivacaine Yes PRN, Univer s liposome 08-26 Starting ity of (PF) 14:08: [facility] 08/26/20 [place] (EXPAREL 00 at 0908, Medical (PF)) 1.3 % Until [place] (13.3 Discontinu mg/mL) ed, injection Routine, Intra-op lactated 2020- No 1000mL at [facility] 08-26-08 mL/hr, ity of infusion 12:15: 12:23 1,000 mL, [place] 1,000 mL 00 :00 IV Medical Infusion, Branch ONCE, 1 dose, [facility] 08/26/20 at 0715, Routine, DSU Pre-op lactated 2020- No 1000mL at [facility] IV 08-26 04-08 mL/hr, ity of infusion 12:15: 12:23 1,000 mL, [place] as 1,000 mL 00 :00 IV Medical Infusion, Branch ONCE, 1 dose, [facility] 08/26/20 at 0715, Routine, DSU Pre-op simvastatin Yes 20mg Take 20 mg Univers 20 mg 4-05 by mouth ity of tablet 18:59: at [place] 06 bedtime. Medical Branch rosuvastati Yes 20mg Take 20 mg Univers n 20 mg 4-05 by mouth ity of tablet 18:59: at [place] 06 bedtime. Medical Branch ALPRAZolam Yes .25mg Take 0.25 U nivers (XANAX) 4-05 mg by ity of 0.25 mg 18:59: mouth 2 [place] tablet 06 (two) Medical times Branch daily. simvastatin Yes 20mg Take 20 mg Univers 20 mg 4-05 by mouth ity of tablet 18:59: at [place] 06 bedtime. Medical Branch rosuvastati Yes 20mg Take 20 mg Univers n 20 mg 4-05 by mouth ity of tablet 18:59: at [place] 06 bedtime. Medical Branch ALPRAZolam Yes .25mg Take 0.25 U nivers (XANAX) 4-05 mg by ity of 0.25 mg 18:59: mouth 2 [place] tablet 06 (two) Medical times Branch daily. simvastatin Yes 20mg Take 20 mg Univers 20 mg 4-05 by mouth ity of tablet 18:59: at [place] 06 bedtime. Medical Branch rosuvastati Yes 20mg Take 20 mg Univers n 20 mg 4-05 by mouth ity of tablet 18:59: at [place] 06 bedtime. Medical Branch ALPRAZolam Yes .25mg Take 0.25 U nivers (XANAX) 4-05 mg by ity of 0.25 mg 18:59: mouth 2 [place] tablet 06 (two) Medical times Branch daily. aspirin Yes 81mg Take 81 mg Univ ers (ASPIRIN 4-05 by mouth ity of LOW DOSE) 18:42: daily. [place] 81 mg EC 38 Medical tablet Branch metoprolol Yes 100mg Take 100 Un fidelia succinate 4-05 mg by ity of XL 100 mg 18:42: mouth 2 [place] 24 hr 38 (two) Medical tablet times Branch daily. apixaban Yes 5mg Take 5 mg Univ ers (ELIQUIS) 5 4-05 by mouth 2 it y of mg tablet 18:42: (two) [place] 38 times Medical daily. Branch allopurinoL Yes 300mg Take 300 U nivers 300 mg 4-05 mg by ity of tablet 18:42: mouth [place] 38 daily. Medical Branch lisinopriL 0 Yes 10mg Take 10 mg U nivers 10 mg 4-05 by mouth ity of tablet 18:42: daily. [place] [address] Medical Branch furosemide 2020-0 Yes 20mg Take 20 mg U nivers (LASIX) 20 4-05 by mouth ity o f mg tablet 18:42: every [place] 38 morning Medical and Branch evening. aspirin 0 Yes 81mg Take 81 mg Univ ers (ASPIRIN 4-05 by mouth ity of LOW DOSE) 18:42: daily. [place] 81 mg EC 38 Medical tablet Branch metoprolol 0 Yes 100mg Take 100 Un fidelia succinate 4-05 mg by ity of XL 100 mg 18:42: mouth 2 [place] 24 hr 38 (two) Medical tablet times [place] daily. apixaban 0 Yes 5mg Take 5 mg Univ ers (ELIQUIS) 5 4-05 by mouth 2 it y of mg tablet 18:42: (two) [place] [address] times Medical daily. Branch allopurinoL 0 Yes 300mg Take 300 U nivers 300 mg 4-05 mg by ity of tablet 18:42: mouth [place] daily. Medical Branch lisinopriL 0 Yes 10mg Take 10 mg U nivers 10 mg 4-05 by mouth ity of tablet 18:42: daily. [place] [address] Medical Branch furosemide 0 Yes 20mg Take 20 mg U nivers (LASIX) 20 4-05 by mouth ity o f mg tablet 18:42: every [place] [address] morning Medical and Branch evening. aspirin 2020-0 Yes 81mg Take 81 mg Univ ers (ASPIRIN 4-05 by mouth ity of LOW DOSE) 18:42: daily. [place] 81 mg EC 38 Medical tablet Branch metoprolol 0 Yes 100mg Take 100 Un fidelia succinate 4-05 mg by ity of XL 100 mg 18:42: mouth 2 [place] 24 hr 38 (two) Medical tablet times Branch daily. apixaban 2020-0 Yes 5mg Take 5 mg Univ ers (ELIQUIS) 5 4-05 by mouth 2 it y of mg tablet 18:42: (two) [place] 38 times Medical daily. Branch allopurinoL 2020-0 Yes 300mg Take 300 U nivers 300 mg 4-05 mg by ity of tablet 18:42: mouth [place] 38 daily. Medical Branch lisinopriL Yes 10mg Take 10 mg U nivers 10 mg 4-05 by mouth ity of tablet 18:42: daily. [place] [address] Medical Branch furosemide Yes 20mg Take 20 mg U nivers (LASIX) 20 4-05 by mouth ity o f mg tablet 18:42: every [place] [address] morning Medical and Branch evening. potassium Yes 20meq Take 20 Univ ers chloride 20 4-05 mEq by ity of mEq packet 18:42: mouth 2 [place] (two) Medical times Branch daily. potassium Yes 20meq Take 20 Univ ers chloride 20 4-05 mEq by ity of mEq packet 18:42: mouth 2 [place] (two) Medical times Branch daily. potassium Yes 20meq Take 20 Univ ers chloride 20 4-05 mEq by ity of mEq packet 18:42: mouth 2 [place] 37 (two) Medical times Branch daily. Vital Signs Vital Name Observation Time Observation Value Comments Source HEIGHT 2020-06-03 05:48:00 167.6 cm WEIGHT 2020-06-03 05:48:00 97.024 kg WEIGHT 2021-03-08 04:00:00 88.4 kg WEIGHT 2021-03-07 05:32:00 90.9 kg WEIGHT 2021-03-06 04:00:00 92.5 kg HEIGHT 2021-03-03 17:53:00 167.6 cm WEIGHT 2021-03-03 17:53:00 96.2 kg WEIGHT 2021-03-08 04:00:00 88.4 kg WEIGHT 2021-03-07 05:32:00 90.9 kg WEIGHT 2021-03-06 04:00:00 92.5 kg HEIGHT 2021-03-03 17:53:00 167.6 cm WEIGHT 2021-03-03 17:53:00 96.2 kg Systolic blood 2020-08-26 15:09:00 131 mm[Hg] Univer sity of pressure [facility] Diastolic blood 2020-08-26 15:09:00 67 mm[Hg] Unive rsity of pressure [facility] Heart rate 2020-08-26 15:09:00 78 /min Universi of [facility] Respiratory rate 2020-08-26 15:09:00 10 /min [facility] of [facility] Oxygen saturation in 2020-08-26 15:09:00 95 /min University of Arterial blood by [place] [facility] diana Pulse oximetry Branch Body temperature 2020-08-26 14:22:[address] [facility] ersity of [place] Medical [place] Body height 2020-08-23 18:30:00 167.6 cm Universi ty of [place] [facility] [place] Body weight 2020-08-23 18:30:00 97.977 kg Universi ty of [place] [facility] Branch BMI 2020-08-23 18:30:00 34.86 kg/m2 Universi ty of [place] [facility] Systolic blood 2020-08-26 15:09:00 131 mm[Hg] Univer sity of pressure [facility] Branch Diastolic blood 2020-08-26 15:09:00 67 mm[Hg] [facility] Heart rate 2020-08-26 15:09:00 78 /min Universi ty of [facility] Respiratory rate 2020-08-26 15:09:00 10 /min [facility] Oxygen saturation in 2020-08-26 15:09:00 95 /min University of Arterial blood by [place] [facility] diana Pulse oximetry Branch Body temperature 2020-08-26 14:22:[address] [facility] ersity of [facility] Body height 2020-08-23 18:30:00 167.6 cm Universi ty of [place] [facility] Body weight 2020-08-23 18:30:00 97.977 kg Universi ty of [place] [facility] BMI 2020-08-23 18:30:00 34.86 kg/m2 Universi ty of [place] [facility] HEIGHT 2020-08-14 13:01:00 167.6 cm WEIGHT 2020-08-14 13:01:00 95.709 kg HEIGHT 2020-08-14 13:01:00 167.6 cm WEIGHT 2020-08-14 13:01:00 95.709 kg HEIGHT 2020-05-31 07:19:00 167.6 cm WEIGHT 2020-05-31 07:19:00 97.433 kg HEIGHT 2020-05-31 07:19:00 167.6 cm WEIGHT 2020-05-31 07:19:00 97.433 kg WEIGHT 2020-05-10 07:23:00 95.8 kg HEIGHT 2020-05-10 07:23:00 167.6 cm WEIGHT 2020-05-10 07:23:00 95.8 kg HEIGHT 2020-05-10 07:23:00 167.6 cm Procedures Procedure Date / Time Performing Source Performed Clinician [id number] 2021-04-25 BURDA.06 [facility] 00:00:00 [facility] [place] [id number] 2021-04-25 BURDA.06 [facility] 00:00:00 Healthcare Medic al [place] [id number] 2021-04-25 BURDA.06 [facility] 00:00:00 Healthcare Medic al [place] [id number] 2021-04-25 BURDA.06 [facility] 00:00:00 [facility] ANOSCOPY 2020-08-26 Cole [facility] xa 13:20:00 Medical Branch HEMORRHOIDECTOMY 2020-08-26 Cole [facility] exas 13:20:00 Medical Branch EXAM UNDER ANESTHESIA 2020-08-26 Cole [facility] 13:20:00 Medical Branch PROCTOSIGMOIDOSCOPY 2020-08-26 Cole [facility] 13:20:00 Medical Branch PATIENT QUESTIONNAIRE 2020-08-26 Doctor Rina, [facility] 05:01:00 [place] [facility] XR CHEST 2 VW 2020-08-25 Cole [facility] xa 15:39:19 Medical Branch NOTICE OF BILLING PRACTICES 2020-08-25 Doctor Flynn, [facility] FOR MEDICARE PATIENTS 14:56:44 [place] [facility] PATIENT FINANCIAL POLICY 2020-08-25 Doctor Rina [facility] 14:56:17 [place] [facility] NO SHOW OR MISSED APPOINTMENT 2020-08-25 Doctor Rina [facility] POLICY ACKNOWLEDGEMENT 14:56:01 [place] [facility] B ranch NOTICE OF PRIVACY PRACTICES 2020-08-25 Doctor Rina, [facility] 14:55:46 [place] [facility] CONSENT/REFUSAL FOR DIAGNOSIS 2020-08-25 Doctor Rina, [facility] AND TREATMENT 14:55:13 [place] [facility] CONSENT/REFUSAL FOR DIAGNOSIS 2020-08-25 Doctor Rina, [facility] AND TREATMENT 14:55:13 [place] [facility] ASSIGNMENT OF BENEFITS 2020-08-25 Doctor Unassigned, [facility] 14:54:52 [place] [facility] ASSIGNMENT OF BENEFITS 2020-08-25 Doctor Unassigned, [facility] 14:54:52 [place] [facility] ASSIGNMENT OF BENEFITS 2020-08-25 Doctor Unassigned, [facility] 14:54:35 [place] [facility] ASSIGNMENT OF BENEFITS 2020-08-25 Doctor Unassigned, [facility] 14:54:35 [place] [facility] DSU PRE-OP 2020-08-20 Doctor Unassigned, [facility] 05:01:00 [place] [facility] DSU PRE-OP 2020-08-20 Doctor Unassigned, [facility] 05:01:00 [place] [facility] Encounters Start End Encounter Admission Attending Care Care Encounter Source Date/Time Date/Time Type Type Clinicians Facility Department ID 2021-05-17 Inpatient ANUEL Quezada [facility] DAYS [id number] [facility] 09:00:00 Reuben [id number] [facility] 2021-03-20 Outpatient Ellen GALVAN [facility] [id number] Univers 11:15:16 [facility] 2021-02-25 Outpatient MICHEAL CARDONA [facility] Surgery [id number] SLE 21:55:24 2021-02-25 Outpatient MICHEAL BAR [facility] Surgery [id number] SLE 20:14:09 2021-04-25 2021-04-25 [id number] [facility] 15:56:00 20:15:00 Reuben [id number] [facility] 2021-04-22 2021-04-22 Outpatient UNKNOWN HCACL LABO [id number] [facility] 16:11:00 16:11:00 [id number] [facility] 2021-04-11 2021-04-11 [facility] [id number] [facility] 01:08:00 01:08:00 Reuben [id number] [facility] 2021-03-03 2021-03-09 Inpatient ER PHI JULIEN Cardiac [id number] SLEH 17:36:00 12:37:00 PETER Cath 2020-12-28 2020-12-28 Outpatient ANUEL MCGILL [facility] [id number] SLE 15:24:03 23:59:00 JODI HERNANDEZ 2020-10-06 2020-10-06 Outpatient ARTEM [facility] [id number] SLE 00:00:00 00:00:00 JODI HERNANDEZ 2020-10-06 2020-10-06 Outpatient ANUEL MCGILL [facility] [id number] SLE 00:00:00 00:00:00 JODI HERNANDEZ 2020-09-21 2020-09-21 Outpatient [facility] [id number] [facility] 2020-08-30 2020-08-30 [id number] 2020-08-26 2020-08-26 [facility] [id number] Univers 07:04:00 10:48:00 Encounter Kwan Chapa [id number] ity of [place] 4[place]2.[place].2.686 [place] [id number] [facility] 071 Branch 2020-08-26 2020-08-26 [facility] [id number] Univers 08:30:00 10:16:00 Kwan Chapa [id number] i ty [place] 4[place]2.7.2.686 [place] [id number] [facility] 020 Branch 2020-08-26 2020-08-26 Orders Doctor MICHEAL [id number] Univers 00:00:00 00:00:00 Only Unassigned, SOFIA 350.1.13.10 ity of [place] [facility] 4.2.7.2.[id number] [facility] 009 Branch 2020-08-25 2020-08-25 [facility] [id number] Univers 09:55:49 23:59:00 Encounter Kwan Chapa [id number] ity of [place] 4.2.7.2.686 [facility] [id number] [facility] 807 Branch 2020-08-25 2020-08-25 Laboratory Only, Adc Test [place] 1.2.840. 114 [id number] Univers 09:56:21 10:11:21 Only Kwan Galvan [id number] ity of [place] 4.2.7.2.686 [facility] [id number] [facility] 353 Branch 2020-08-25 2020-08-25 Vice Principal Joy, [facility] Lab Main [place] 1.2.8 [id number] Univers 09:56:07 10:11:07 Visit Kwan Galvan [id number] ity of [place] 4.2.7.2.686 [facility] [id number] Pr dical [facility] 353 Branch [facility] 2020-08-25 2020-08-25 Outpatient Ellen GALVAN [facility] [id number] Univers 00:00:00 00:00:00 KWAN pedroza [facility] 2020-08-16 2020-08-16 Outpatient STLMLC [facility] [id number] [facility] 2020-08-14 2020-08-14 Emergency ER SLE Emergency [id number] SLEH 12:47:00 12:47:00 2020-08-12 2020-08-12 Outpatient ANUEL MCGILL [facility] [id number] [facility] 00:00:00 00:00:00 JODI HERNANDEZ 2020-07-27 2020-07-27 Outpatient ANUEL MCGILL [facility] [id number] [facility] 00:00:00 00:00:00 JODI HERNANDEZ 2020-05-31 2020-05-31 Outpatient EL SLE SLE [id number] [facility] 00:00:00 00:00:00 2020-05-10 2020-05-10 Outpatient EL SLE SLE [id number] [facility] 00:00:00 00:00:00 2020-03-16 2020-03-17 Outpatient nullFlavo MNA [id number] Memoria 13:15:00 04:59:59 r Neurology 04 l Nilay Hartmann 2020-03-17 2020-03-17 Ambulatory nullFlavo MNA [id number] [facility] 01:15:00 01:15:00 Pre-Reg r Neurology 03 l Nilay Hartmann 2018-04-30 2018-04-30 Outpatient ANUEL MCGILL [facility] [id number] [facility] 00:00:00 00:00:00 JODI HERNANDEZ Results Test Description Test Time Test Comments Results Result Comments Source COAGULATION TIME ACTIVATED 2021-04-25 13:44:00 Test Item Value Reference Range Interpretation Comme nts COAGULATION TIME ACTIVATED (test code = ACT) 323 SECONDS 74-137 H COAGULATION TIME [id number] 13:12:00 Test Item Value Reference Range Interpretation Comments COAGULATION TIME ACTIVATED (test 312 SECONDS 74-137 H code = ACT) COAGULATION TIME [id number] 12:47:00 Test Item Value Reference Range Interpretation Comments COAGULATION TIME ACTIVATED (test 329 SECONDS 74-137 H code = ACT) COAGULATION TIME [id number] 12:31:00 Test Item Value Reference Range Interpretation Comments COAGULATION TIME ACTIVATED (test 329 SECONDS 74-137 H code = ACT) COAGULATION TIME [id number] 12:17:00 Test Item Value Reference Range Interpretation Comments COAGULATION TIME ACTIVATED (test 279 SECONDS 74-137 H code = ACT) Novel Coronavirus 09:27:00 Test Item Value Reference Range Interpretation Comments Novel Coronavirus Negative Negative Positive r esults are 2019 Inhouse (test indicativ e of the presence code = [id number]) ofSARS-CoV -2 RNA, clinical correlation wit h patient historyand othe r diagnostic info rmation is necessary to determinepatien t infection status. Positiv e results do not rule out bacterial infection or co -infection with other viru ses. Negative result s do not preclude SARS-C oV-2 infection andsh ould not be used as the lili e basis for patient managementdecis ions. Negative result s must be combined with otherclinical observations, p atient history, and epidemiological information . Detection of SARS-CoV-2 RNA may be affe cted bysample collec tion methods, storag e conditions, and /or stageof infection. Anny l RNA mutations, vacc inations, antiviraltherap eutics, antibiotics, chemotherapeuti c orimmunosuppres yu drugs have not been e valuated for effectson d etection. Results are for the identification of SARS-CoV-2 RNA usingreal-time (RT) polymerase or[place] n reaction (PCR) technolog yfor the qualitative det ection of nucleic acids f rom [id number] v irus and diagnosis of SA RS-CoV-2 virusinfection. It is an Emergency Use Authorization ( EUA) testauthorized by the U.S. FDA. First test? UnknownEmployed in Healthcare? UnknownSymptomatic as defined by CDC? UnknownHospitalizeddue to COVID? UnknownIn ICU due to COVID? UnknownResident in a congregate care setting? Unknown? UnknownAge at collection: Ted Coronavirus [id number] 09:26:00 Test Item Value Reference Range Interpretation Comments Novel Coronavirus Negative Negative Positive r esults are 2019 Inhouse (test indicativ e of the presence code = [id number]) ofSARS-CoV -2 RNA, clinical correlation wit h patient historyand othe r diagnostic info rmation is necessary to determinepatien t infection status. Positiv e results do not rule out bacterial infection or co -infection with other viru ses. Negative result s do not preclude SARS-C oV-2 infection andsh ould not be used as the lili e basis for patient managementdecis ions. Negative result s must be combined with otherclinical observations, p atient history, and epidemiological information . Detection of SARS-CoV-2 RNA may be affe cted bysample collec tion methods, storag e conditions, and /or stageof infection. Anny l RNA mutations, vacc inations, antiviraltherap eutics, antibiotics, chemotherapeuti c orimmunosuppres yu drugs have not been e valuated for effectson d etection. Results are for the identification of SARS-CoV-2 RNA usingreal-time (RT) polymerase or[place] n reaction (PCR) technolog yfor the qualitative det ection of nucleic acids f rom [id number] v irus and diagnosis of SA RS-CoV-2 virusinfection. It is an Emergency Use Authorization ( EUA) testauthorized by the U.S. FDA. First test? UnknownEmployed in Healthcare? UnknownSymptomatic as defined by CDC? UnknownHospitalizeddue to COVID? UnknownIn ICU due to COVID? UnknownResident in a congregate care setting? Unknown? UnknownAge at collection: Y COMPREHENSIVE METABOLIC [id number] 13:37:00 Test Item Value Reference Range Interpretation Comments SODIUM (test code = 143 mmol/L 136-145 N Please n ote: New NA) Reference Range Jun 2020 POTASSIUM (test 4.0 mmol/L 3.5-5.1 N code = K) CHLORIDE (test code 110 mmol/L 98-107 H Please n ote: New = CL) Reference Range Jun 2020 CARBON DIOXIDE 24 mmol/L 20-31 N Please note: New (test code = CO2) Reference Range Jun 2020 GLUCOSE (test code 115 mg/dL 74-106 H Please no te: New = GLU) Reference Range Jun 2020 BLOOD UREA NITROGEN 23 mg/dL 9-23 N Please n ote: New (test code = BUN) Reference Range Jun 2020 GLOMERULAR >=60 max >60 Units are FILTRATION RATE estimate mL/min mL/min/1. 73m2 The (test code = GFR) estimated glomerular filtration rate is computed usingpatient ra ce, age (>18), sex, and serum creatinin e. If anyof the ne eded data elements a re missing the Laboratory yomaira ot compute an estimation of t he glomerular filtration rate . CREATININE (test 0.90 mg/dL 0.70-1.30 N Please note : New code = CREAT) Reference Rang e Jun 2020 TOTAL PROTEIN (test 6.5 g/dL 5.7-8.2 N Please n ote: New code = PROT) Reference Range Jun 2020 ALBUMIN (test code 4.5 g/dL 3.2-4.8 N Please no te: New = ALB) Reference Range Jun 2020 CALCIUM (test code 8.5 mg/dL 8.7-10.4 L Please no te: New = CA) Reference Range Jun 2020 BILIRUBIN TOTAL 1.2 mg/dL 0.3-1.2 N Please note: New (test code = BILT) Reference Range Jun 2020 SGOT/AST (test code 20 U/L <34 N Please n ote: New = AST) Reference Range Jun 2020 SGPT/ALT (test code 16 U/L 10-49 N Please n ote: New = ALT) Reference Range Jun 2020 ALKALINE 140 U/L 46-116 H Please note: Ne w PHOSPHATASE (test Reference Range Feb code = ALKP) 2020 CBC W/AUTO [id number] 13:27:00 Test Item Value Reference Range Interpretation Comments WHITE BLOOD CELL (test code = 5.3 x10 3/uL 4.8-10.8 N WBC) RED BLOOD CELL (test code = 4.28 x10 6/uL 4.70-6.10 L RBC) HEMOGLOBIN (test code = HGB) 11.3 g/dL 14.0-18.0 L HEMATOCRIT (test code = HCT) 36.7 % 42.0-52.0 L MEAN CELL VOLUME (test code = 85.7 fL 80.0-94.0 N MCV) MEAN CELL HGB (test code = MCH) 26.4 pg 27-31 L MEAN CELL HGB CONCENTRATION 30.8 G/DL 33-36.5 L (test code = MCHC) RED CELL DISTRIBUTION WIDTH 17.4 % 12.9-16.9 H (test code = RDW) PLATELET COUNT (test code = 178 x10 3/uL 150-440 N PLT) MEAN PLATELET VOLUME (test code 11.5 fL 8.9-12.4 N = MPV) NEUTROPHIL % (test code = NT%) 63.3 % 42.2-75.2 N LYMPHOCYTE % (test code = LY%) 25.9 % 20.5-51.1 N MONOCYTE % (test code = MO%) 8.1 % 1.7-9.3 N EOSINOPHIL % (test code = EO%) 1.9 % 0.0-7.0 N BASOPHIL % (test code = BA%) 0.6 % 0-2.5 N NEUTROPHIL # (test code = NT#) 3.35 x10 3/uL 1.80-7.70 N LYMPHOCYTE # (test code = LY#) 1.37 x10 3/uL 1.00-4.80 N MONOCYTE # (test code = MO#) 0.43 x10 3/uL 0.00-0.80 N EOSINOPHIL # (test code = EO#) 0.10 x10 3/uL 0.00-0.45 N BASOPHIL # (test code = BA#) 0.03 x10 3/uL 0.0-0.20 N COMPREHENSIVE METABOLIC [id number] 14:09:00 Test Item Value Reference Range Interpretation Comments SODIUM (test code = 139 mmol/L 136-145 N Please n ote: New NA) Reference Range Jun 2020 POTASSIUM (test 4.3 mmol/L 3.5-5.1 N code = K) CHLORIDE (test code 105 mmol/L 98-107 N Please n ote: New = CL) Reference Range Jun 2020 CARBON DIOXIDE 25 mmol/L 20-31 N Please note: New (test code = CO2) Reference Range Jun 2020 GLUCOSE (test code 110 mg/dL 74-106 H Please no te: New = GLU) Reference Range Jun 2020 BLOOD UREA NITROGEN 29 mg/dL 9-23 H Please n ote: New (test code = BUN) Reference Range Jun 2020 GLOMERULAR >=60 max >60 Units are FILTRATION RATE estimate mL/min mL/min/1. 73m2 The (test code = GFR) estimated glomerular filtration rate is computed usingpatient ra ce, age (>18), sex, and serum creatinin e. If anyof the ne eded data elements a re missing the Laboratory yomaira ot compute an estimation of t he glomerular filtration rate . CREATININE (test 1.10 mg/dL 0.70-1.30 N Please note : New code = CREAT) Reference Rang e Jun 2020 TOTAL PROTEIN (test 7.1 g/dL 5.7-8.2 N Please n ote: New code = PROT) Reference Range Jun 2020 ALBUMIN (test code 4.6 g/dL 3.2-4.8 N Please no te: New = ALB) Reference Range Jun 2020 CALCIUM (test code 8.3 mg/dL 8.7-10.4 L Please no te: New = CA) Reference Range Jun 2020 BILIRUBIN TOTAL 1.1 mg/dL 0.3-1.2 N Please note: New (test code = BILT) Reference Range Jun 2020 SGOT/AST (test code 25 U/L <34 N Please n ote: New = AST) Reference Range Jun 2020 SGPT/ALT (test code 20 U/L 10-49 N Please n ote: New = ALT) Reference Range Jun 2020 ALKALINE 127 U/L 46-116 H Please note: Ne w PHOSPHATASE (test Reference Range Feb code = ALKP) 2020 CBC W/AUTO [id number] 13:50:00 Test Item Value Reference Range Interpretation Comments WHITE BLOOD CELL (test code = 6.7 x10 3/uL 4.8-10.8 N WBC) RED BLOOD CELL (test code = 4.60 x10 6/uL 4.70-6.10 L RBC) HEMOGLOBIN (test code = HGB) 12.3 g/dL 14.0-18.0 L HEMATOCRIT (test code = HCT) 40.2 % 42.0-52.0 L MEAN CELL VOLUME (test code = 87.4 fL 80.0-94.0 N MCV) MEAN CELL HGB (test code = MCH) 26.7 pg 27-31 L MEAN CELL HGB CONCENTRATION 30.6 G/DL 33-36.5 L (test code = MCHC) RED CELL DISTRIBUTION WIDTH 17.5 % 12.9-16.9 H (test code = RDW) PLATELET COUNT (test code = 196 x10 3/uL 150-440 N PLT) MEAN PLATELET VOLUME (test code 11.3 fL 8.9-12.4 N = MPV) NEUTROPHIL % (test code = NT%) 66.0 % 42.2-75.2 N LYMPHOCYTE % (test code = LY%) 23.0 % 20.5-51.1 N MONOCYTE % (test code = MO%) 8.5 % 1.7-9.3 N EOSINOPHIL % (test code = EO%) 1.8 % 0.0-7.0 N BASOPHIL % (test code = BA%) 0.3 % 0-2.5 N NEUTROPHIL # (test code = NT#) 4.44 x10 3/uL 1.80-7.70 N LYMPHOCYTE # (test code = LY#) 1.55 x10 3/uL 1.00-4.80 N MONOCYTE # (test code = MO#) 0.57 x10 3/uL 0.00-0.80 N EOSINOPHIL # (test code = EO#) 0.12 x10 3/uL 0.00-0.45 N BASOPHIL # (test code = BA#) 0.02 x10 3/uL 0.0-0.20 N POCT-GLUCOSE [id number] 08:02:18 Test Item Value Reference Range Interpretation Comments POC-GLUCOSE METER 120 mg/dL 70-110 H : TESTED A T [facility] [address] (MANUEL) (test code = [place], 1538) [id number]: Airways Control Specialist/Techni bridgette ID = [id number] for Mio Osorio RAD, CHEST, 1 VIEW, NON [id number] 06:13:00Reason for exam:->s/p PPMShould this be performed at the bedside?->[facility] : 1945 Sex: MFINAL REPORT RAD, CHEST, 1 VIEW, NON DEPT INDICATION: s/p PPM COMPARIS ON: 12/28/2020 FINDINGS: Portable frontal view of the chest. IMPRESSION: Left chest pacer device with leads over the right atrium and right ventricle. Median sternotomy wires are present. Stable cardiomegaly. Atrial appendage closure device present. No focal lung consolidation, pneumothorax or significant pleural effusion. Stable osseous structures. Signed: Brendan Rosa MDReport Verified Date/Time: 03/09/2021 06:13:39 [id number] 06:04:19 Test Item Value Reference Range Interpretation Comments PHOSPHORUS (MANUEL) (test code = 4.6 mg/dL 2.3-4.7 604) Airways Control Specialist ID - [id number] 06:04:18 Test Item Value Reference Range Interpretation Comments MAGNESIUM (BEAKER) (test code = 1.9 mg/dL 1.6-2.6 627) Airways Control Specialist ID - BSCOMPREHENSIVE METABOLIC [id number] 06:04:16 Test Item Value Reference Range Interpretation Comments TOTAL PROTEIN 7.0 gm/dL 6.0-8.3 (BEAKER) (test code = 770) ALBUMIN (BEAKER) 3.7 g/dL 3.5-5.0 (test code = 1145) ALKALINE PHOSPHATASE 154 U/L 40-150 H (BEAKER) (test code = 346) BILIRUBIN TOTAL 1.3 mg/dL 0.2-1.2 H (BEAKER) (test code = 377) SODIUM (BEAKER) (test 136 meq/L 136-145 code = 381) POTASSIUM (BEAKER) 4.0 meq/L 3.5-5.1 (test code = 379) CHLORIDE (BEAKER) 104 meq/L 98-107 (test code = 382) CO2 (BEAKER) (test 23 meq/L 22-29 code = 355) BLOOD UREA NITROGEN 15 mg/dL 7-21 (BEAKER) (test code = 354) CREATININE (BEAKER) 0.81 mg/dL 0.57-1.25 (test code = 358) GLUCOSE RANDOM 114 mg/dL 70-105 H (BEAKER) (test code = 652) CALCIUM (BEAKER) 8.5 mg/dL 8.4-10.2 (test code = 697) AST (SGOT) (BEAKER) 31 U/L 5-34 (test code = 353) ALT (SGPT) (BEAKER) 17 U/L 6-55 (test code = 347) EGFR (BEAKER) (test 93 mL/min/1.73 ESTIMA MEGA GFR IS code = 1092) sq m NOT ACCURATE CREATININE CLEARANCE IN PREDICTING GLOMERULAR FILTRATION RATE . ESTIMATED GFR I S NOT APPLICABLE FOR DIALYSIS PATIEN TS. Airways Control Specialist ID - BSPOCT-GLUCOSE [id number] 22:11:17 Test Item Value Reference Range Interpretation Comments POC-GLUCOSE METER 146 mg/dL 70-110 H : [facility] (BEAKER) (test code = S[place], 1538) [id number]: Airways Control Specialist/Techni bridgette ID = [id number] for UG CIPRIANO FIGUEREDO POCT-GLUCOSE [id number] 16:54:57 Test Item Value Reference Range Interpretation Comments POC-GLUCOSE METER 79 mg/dL 70-110 : TESTED A T [facility] 6720 (BEAKER) (test code = SATHYA Hugehs [facility], 1538) [address]: Airways Control Specialist/Techni bridgette ID = [id number] for Medi na, Dayna POCT-GLUCOSE [id number] 10:58:25 Test Item Value Reference Range Interpretation Comments POC-GLUCOSE METER 102 mg/dL 70-110 : TESTED A T [facility] [address] (BEAKER) (test code = SATHYA Hughes [facility], 1538) [address]: Airways Control Specialist/Techni bridgette ID = [id number] for AG LA ULLOA [id number] 05:18:57 Test Item Value Reference Range Interpretation Comments MAGNESIUM (BEAKER) (test code = 2.0 mg/dL 1.6-2.6 627) Airways Control Specialist ID - BRADLEY [id number] 05:18:57 Test Item Value Reference Range Interpretation Comments PHOSPHORUS (BEAKER) (test code = 4.3 mg/dL 2.3-4.7 604) Airways Control Specialist ID - BRADLEY LCOMPREHENSIVE METABOLIC [id number] 05:18:56 Test Item Value Reference Range Interpretation Comments TOTAL PROTEIN 7.1 gm/dL 6.0-8.3 (BEAKER) (test code = 770) ALBUMIN (BEAKER) 3.7 g/dL 3.5-5.0 (test code = 1145) ALKALINE PHOSPHATASE 153 U/L 40-150 H (BEAKER) (test code = 346) BILIRUBIN TOTAL 1.5 mg/dL 0.2-1.2 H (BEAKER) (test code = 377) SODIUM (BEAKER) (test 134 meq/L 136-145 L code = 381) POTASSIUM (BEAKER) 4.1 meq/L 3.5-5.1 (test code = 379) CHLORIDE (BEAKER) 103 meq/L 98-107 (test code = 382) CO2 (BEAKER) (test 22 meq/L 22-29 code = 355) BLOOD UREA NITROGEN 14 mg/dL 7-21 (BEAKER) (test code = 354) CREATININE (BEAKER) 0.86 mg/dL 0.57-1.25 (test code = 358) GLUCOSE RANDOM 109 mg/dL 70-105 H (BEAKER) (test code = 652) CALCIUM (BEAKER) 8.8 mg/dL 8.4-10.2 (test code = 697) AST (SGOT) (BEAKER) 28 U/L 5-34 (test code = 353) ALT (SGPT) (BEAKER) 17 U/L 6-55 (test code = 347) EGFR (BEAKER) (test 86 mL/min/1.73 ESTIMA MEGA GFR IS code = 1092) sq m NOT ACCURATE CREATININE CLEARANCE IN PREDICTING GLOMERULAR FILTRATION RATE . ESTIMATED GFR I S NOT APPLICABLE FOR DIALYSIS PATIEN TS. Airways Control Specialist ID - PIAYA LCBC W/PLT COUNT & AUTO [id number] 05:06:52 Test Item Value Reference Range Interpretation Comments WHITE BLOOD CELL COUNT (BEAKER) 5.9 K/ L 3.5-10.5 (test code = 775) RED BLOOD CELL COUNT (BEAKER) 4.44 M/ L 4.63-6.08 L (test code = 761) HEMOGLOBIN (BEAKER) (test code = 11.7 GM/DL 13.7-17.5 L 410) HEMATOCRIT (BEAKER) (test code = 38.7 % 40.1-51.0 L 411) MEAN CORPUSCULAR VOLUME (BEAKER) 87.2 fL 79.0-92.2 (test code = 753) MEAN CORPUSCULAR HEMOGLOBIN 26.4 pg 25.7-32.2 (BEAKER) (test code = 751) MEAN CORPUSCULAR HEMOGLOBIN CONC 30.2 GM/DL 32.3-36.5 L (BEAKER) (test code = 752) RED CELL DISTRIBUTION WIDTH 16.7 % 11.6-14.4 H (BEAKER) (test code = 412) PLATELET COUNT (BEAKER) (test 189 K/CU MM 150-450 code = 756) MEAN PLATELET VOLUME (BEAKER) 10.3 fL 9.4-12.4 (test code = 754) NUCLEATED RED BLOOD CELLS 0 /100 WBC 0-0 (BEAKER) (test code = 413) NEUTROPHILS RELATIVE PERCENT 55 % (BEAKER) (test code = 429) LYMPHOCYTES RELATIVE PERCENT 33 % (BEAKER) (test code = 430) MONOCYTES RELATIVE PERCENT 8 % (BEAKER) (test code = 431) EOSINOPHILS RELATIVE PERCENT 3 % (BEAKER) (test code = 432) BASOPHILS RELATIVE PERCENT 1 % (BEAKER) (test code = 437) NEUTROPHILS ABSOLUTE COUNT 3.24 K/ L 1.78-5.38 (BEAKER) (test code = 670) LYMPHOCYTES ABSOLUTE COUNT 1.95 K/ L 1.32-3.57 (BEAKER) (test code = 414) MONOCYTES ABSOLUTE COUNT (BEAKER) 0.48 K/ L 0.30-0.82 (test code = 415) EOSINOPHILS ABSOLUTE COUNT 0.17 K/ L 0.04-0.54 (BEAKER) (test code = 416) BASOPHILS ABSOLUTE COUNT (BEAKER) 0.05 K/ L 0.01-0.08 (test code = 417) IMMATURE GRANULOCYTES-RELATIVE 0 % 0-1 PERCENT (BEAKER) (test code = 2801) POCT-GLUCOSE [id number] 20:28:10 Test Item Value Reference Range Interpretation Comments POC-GLUCOSE METER 110 mg/dL 70-110 : TESTED A T [facility] 6720 (BEAKER) (test code = [facility], 153) [address]: Airways Control Specialist/Techni bridgette ID = [id number] for Elmer hutson (pca2), [place] POCT-GLUCOSE [id number] 16:32:08 Test Item Value Reference Range Interpretation Comments POC-GLUCOSE METER 102 mg/dL 70-110 : TESTED A T [facility] 67[address] (BEAKER) (test code = [facility], 1538) [address]: Airways Control Specialist/Techni bridgette ID = [id number] for BE LL, BEAULA POCT-GLUCOSE [id number] 11:20:47 Test Item Value Reference Range Interpretation Comments POC-GLUCOSE METER 142 mg/dL 70-110 H : TESTED A T [facility] 67[address] (BEAKER) (test code = [facility], 153) [address]: Airways Control Specialist/Techni bridgette ID = [id number] for BE LL, BEAULA POCT-GLUCOSE [id number] 07:24:42 Test Item Value Reference Range Interpretation Comments POC-GLUCOSE METER 119 mg/dL 70-110 H : TESTED A T [facility] 67[address] (BEAKER) (test code = [place], 1538) [address]: Airways Control Specialist/Techni bridgette ID = [id number] for AGNES HOOD [id number] 06:18:47 Test Item Value Reference Range Interpretation Comments MAGNESIUM (BEAKER) (test code = 1.8 mg/dL 1.6-2.6 627) Airways Control Specialist ID - [id number] 06:18:47 Test Item Value Reference Range Interpretation Comments PHOSPHORUS (BEAKER) (test code = 4.2 mg/dL 2.3-4.7 604) Airways Control Specialist ID - EOCOMPREHENSIVE METABOLIC [id number] 06:18:46 Test Item Value Reference Range Interpretation Comments TOTAL PROTEIN 6.6 gm/dL 6.0-8.3 (BEAKER) (test code = 770) ALBUMIN (BEAKER) 3.4 g/dL 3.5-5.0 L (test code = 1145) ALKALINE PHOSPHATASE 132 U/L 40-150 (BEAKER) (test code = 346) BILIRUBIN TOTAL 1.5 mg/dL 0.2-1.2 H (BEAKER) (test code = 377) SODIUM (BEAKER) (test 140 meq/L 136-145 code = 381) POTASSIUM (BEAKER) 3.9 meq/L 3.5-5.1 (test code = 379) CHLORIDE (BEAKER) 107 meq/L 98-107 (test code = 382) CO2 (BEAKER) (test 23 meq/L 22-29 code = 355) BLOOD UREA NITROGEN 9 mg/dL 7-21 (BEAKER) (test code = 354) CREATININE (BEAKER) 0.74 mg/dL 0.57-1.25 (test code = 358) GLUCOSE RANDOM 114 mg/dL 70-105 H (BEAKER) (test code = 652) CALCIUM (BEAKER) 8.8 mg/dL 8.4-10.2 (test code = 697) AST (SGOT) (BEAKER) 27 U/L 5-34 (test code = 353) ALT (SGPT) (BEAKER) 16 U/L 6-55 (test code = 347) EGFR (BEAKER) (test 103 ESTIMATE D GFR IS code = 1092) mL/min/1.73 sq NOT ACCURA TE m CREATININE CLEARANCE IN PREDICTING GLOMERULAR FILTRATION RATE . ESTIMATED GFR I S NOT APPLICABLE FOR DIALYSIS PATIEN TS. Airways Control Specialist ID - [id number] 06:01:01 Test Item Value Reference Range Interpretation Comments PROTIME (BEAKER) (test 18.2 seconds 11.9-14.2 H code = 759) INR (BEAKER) (test 1.53 See_Comment [Automat ed code = 370) message] The sy stem which generated this result transmitted reference range : <=5.90. The reference range was not used to interpret this result as normal/abnormal . PARTIAL THROMBOPLASTIN 42.3 seconds 22.5-36.0 H TIME (BEAKER) (test code = 760) RECOMMENDED COUMADIN/WARFARIN INR THERAPY RANGESSTANDARD DOSE: 2.0 - 3.0 Includes: PROPHYLAXIS forvenous thrombosis, systemic embolization; TREATMENT for venous thrombosis and/or pulmonary embolus.HIGH RISK: Target INR is 2.5-3.5 for patients with mechanical heart valves.CBC W/PLT COUNT & AUTO DIFFERENTIAL 2021-03-07 05:43:55 Test Item Value Reference Range Interpretation Comments WHITE BLOOD CELL COUNT (BEAKER) 4.9 K/ L 3.5-10.5 (test code = 775) RED BLOOD CELL COUNT (BEAKER) 4.19 M/ L 4.63-6.08 L (test code = 761) HEMOGLOBIN (BEAKER) (test code = 11.1 GM/DL 13.7-17.5 L 410) HEMATOCRIT (BEAKER) (test code = 36.8 % 40.1-51.0 L 411) MEAN CORPUSCULAR VOLUME (BEAKER) 87.8 fL 79.0-92.2 (test code = 753) MEAN CORPUSCULAR HEMOGLOBIN 26.5 pg 25.7-32.2 (BEAKER) (test code = 751) MEAN CORPUSCULAR HEMOGLOBIN CONC 30.2 GM/DL 32.3-36.5 L (BEAKER) (test code = 752) RED CELL DISTRIBUTION WIDTH 16.6 % 11.6-14.4 H (BEAKER) (test code = 412) PLATELET COUNT (BEAKER) (test 184 K/CU MM 150-450 code = 756) MEAN PLATELET VOLUME (BEAKER) 10.7 fL 9.4-12.4 (test code = 754) NUCLEATED RED BLOOD CELLS 0 /100 WBC 0-0 (BEAKER) (test code = 413) NEUTROPHILS RELATIVE PERCENT 57 % (BEAKER) (test code = 429) LYMPHOCYTES RELATIVE PERCENT 31 % (BEAKER) (test code = 430) MONOCYTES RELATIVE PERCENT 8 % (BEAKER) (test code = 431) EOSINOPHILS RELATIVE PERCENT 3 % (BEAKER) (test code = 432) BASOPHILS RELATIVE PERCENT 1 % (BEAKER) (test code = 437) NEUTROPHILS ABSOLUTE COUNT 2.80 K/ L 1.78-5.38 (BEAKER) (test code = 670) LYMPHOCYTES ABSOLUTE COUNT 1.50 K/ L 1.32-3.57 (BEAKER) (test code = 414) MONOCYTES ABSOLUTE COUNT (BEAKER) 0.40 K/ L 0.30-0.82 (test code = 415) EOSINOPHILS ABSOLUTE COUNT 0.13 K/ L 0.04-0.54 (BEAKER) (test code = 416) BASOPHILS ABSOLUTE COUNT (BEAKER) 0.04 K/ L 0.01-0.08 (test code = 417) IMMATURE GRANULOCYTES-RELATIVE 0 % 0-1 PERCENT (BEAKER) (test code = 2801) POCT-GLUCOSE [id number] 23:30:18 Test Item Value Reference Range Interpretation Comments POC-GLUCOSE METER 99 mg/dL 70-110 : TESTED A T [facility] [address] (BEAKER) (test code = SATHYA Hughes [facility], 1538) [address]: Airways Control Specialist/Techni bridgette ID = [id number] for Murtaza white ([facility])[place] CBC W/PLT COUNT & AUTO [id number] 05:45:41 Test Item Value Reference Range Interpretation Comments WHITE BLOOD CELL COUNT (BEAKER) 5.5 K/ L 3.5-10.5 (test code = 775) RED BLOOD CELL COUNT (BEAKER) 4.11 M/ L 4.63-6.08 L (test code = 761) HEMOGLOBIN (BEAKER) (test code = 10.8 GM/DL 13.7-17.5 L 410) HEMATOCRIT (BEAKER) (test code = 36.3 % 40.1-51.0 L 411) MEAN CORPUSCULAR VOLUME (BEAKER) 88.3 fL 79.0-92.2 (test code = 753) MEAN CORPUSCULAR HEMOGLOBIN 26.3 pg 25.7-32.2 (BEAKER) (test code = 751) MEAN CORPUSCULAR HEMOGLOBIN CONC 29.8 GM/DL 32.3-36.5 L (BEAKER) (test code = 752) RED CELL DISTRIBUTION WIDTH 17.0 % 11.6-14.4 H (BEAKER) (test code = 412) PLATELET COUNT (BEAKER) (test 169 K/CU MM 150-450 code = 756) MEAN PLATELET VOLUME (BEAKER) 10.8 fL 9.4-12.4 (test code = 754) NUCLEATED RED BLOOD CELLS 0 /100 WBC 0-0 (BEAKER) (test code = 413) NEUTROPHILS RELATIVE PERCENT 60 % (BEAKER) (test code = 429) LYMPHOCYTES RELATIVE PERCENT 28 % (BEAKER) (test code = 430) MONOCYTES RELATIVE PERCENT 9 % (BEAKER) (test code = 431) EOSINOPHILS RELATIVE PERCENT 2 % (BEAKER) (test code = 432) BASOPHILS RELATIVE PERCENT 1 % (BEAKER) (test code = 437) NEUTROPHILS ABSOLUTE COUNT 3.27 K/ L 1.78-5.38 (BEAKER) (test code = 670) LYMPHOCYTES ABSOLUTE COUNT 1.54 K/ L 1.32-3.57 (BEAKER) (test code = 414) MONOCYTES ABSOLUTE COUNT (BEAKER) 0.47 K/ L 0.30-0.82 (test code = 415) EOSINOPHILS ABSOLUTE COUNT 0.13 K/ L 0.04-0.54 (BEAKER) (test code = 416) BASOPHILS ABSOLUTE COUNT (BEAKER) 0.04 K/ L 0.01-0.08 (test code = 417) IMMATURE GRANULOCYTES-RELATIVE 0 % 0-1 PERCENT (BEAKER) (test code = 2801) [id number] 05:32:19 Test Item Value Reference Range Interpretation Comments MAGNESIUM (BEAKER) (test code = 1.9 mg/dL 1.6-2.6 627) [employer] ID - [id number] 05:32:19 Test Item Value Reference Range Interpretation Comments PHOSPHORUS (BEAKER) (test code = 4.0 mg/dL 2.3-4.7 604) [employer]ist ID - DBCOMPREHENSIVE METABOLIC [id number] 05:32:18 Test Item Value Reference Range Interpretation Comments TOTAL PROTEIN 6.7 gm/dL 6.0-8.3 (BEAKER) (test code = 770) ALBUMIN (BEAKER) 3.6 g/dL 3.5-5.0 (test code = 1145) ALKALINE PHOSPHATASE 145 U/L 40-150 (BEAKER) (test code = 346) BILIRUBIN TOTAL 1.6 mg/dL 0.2-1.2 H (BEAKER) (test code = 377) SODIUM (BEAKER) (test 137 meq/L 136-145 code = 381) POTASSIUM (BEAKER) 4.1 meq/L 3.5-5.1 (test code = 379) CHLORIDE (BEAKER) 105 meq/L 98-107 (test code = 382) CO2 (BEAKER) (test 23 meq/L 22-29 code = 355) BLOOD UREA NITROGEN 10 mg/dL 7-21 (BEAKER) (test code = 354) CREATININE (BEAKER) 0.73 mg/dL 0.57-1.25 (test code = 358) GLUCOSE RANDOM 101 mg/dL 70-105 (BEAKER) (test code = 652) CALCIUM (BEAKER) 8.5 mg/dL 8.4-10.2 (test code = 697) AST (SGOT) (BEAKER) 27 U/L 5-34 (test code = 353) ALT (SGPT) (BEAKER) 14 U/L 6-55 (test code = 347) EGFR (BEAKER) (test 104 ESTIMATE D GFR IS code = 1092) mL/min/1.73 sq NOT ACCURA TE m CREATININE CLEARANCE IN PREDICTING GLOMERULAR FILTRATION RATE . ESTIMATED GFR I S NOT APPLICABLE FOR DIALYSIS PATIEN TS. [employer] Specialist ID - [id number] ([facility])2021-03-05 10:23:18 Test Item Value Reference Range Interpretation Comments SARS-COV2/RT-PCR (test Negative Not Detected, Negative, code = 7253004) See external report for linked test SARS-COV-2 PERFORMING LAB [facility] (test code = 3555484) Negative result for this test determines that SARS-CoV-2 RNA was not present in the specimen above the Limit of Detection (LOD). However, Negative results do not preclude SARS-CoV-2 infection and should not be used as the sole basis for treatment or patient management decisions. Negative results mustbe combined with clinical observations, patient history, and epidemiological information. A false negative result may occur if a specimen is improperly collected, transported or handled. A false negative result should be considered if patient's recent exposures or clinical presentation indicate that COVID-19 (SARS-CoV-2) is likely and diagnostic tests for other causes of illness are negative. Re-testing should be considered in cases of suspected false negatives.The limit of detection for this assay is 800 copies/mL.This SARS CoV-2 test is a real-time RT-PCR test intended for the qualitative detection of nucleic acid from SARS-CoV-2 in a nasopharyngeal swab specimen collected from individuals susp ected of COVID-19 by their healthcare provider.This test has not been Food and Drug Administration (FDA) cleared or approved. This is a modified version of an approved Emergency Use Authorization (EUA) and is in the process of review by the FDA. Once authorized by the FDA, the issued EUA will be effective until the declaration that circumstances exist justifying the authorization of the emergency use of in vitro diagnostic tests for detection and/or diagnosis of COVID-19 is terminated under Section 564(b)(2) of the Act or the EUA is revoked under Section 564(g) of the Act.Fact Sheet for Healthcare Providers:https://www.[employer]Lif[employer].Shopping Buddy/sites/default/files/product/documents/Fact_Shee z_NP_Ffgghkucj_Refe_RRRF-MlU-5.pdfFact Sheet for Healthcare Patients:https://www.[employer]/sites/default/files/product/ documents/Mrnd_Qiovp_Eeqgcshe_Kxyr_JPEM-RvS-7.pdfPerforming Laboratory:[facility], [place] [id number] 04:26:20 Test Item Value Reference Range Interpretation Comments MAGNESIUM (BEAKER) (test code = 1.9 mg/dL 1.6-2.6 627) Airways Control Specialist ID - SHANNON [id number] 04:26:20 Test Item Value Reference Range Interpretation Comments PHOSPHORUS (BEAKER) (test code = 3.9 mg/dL 2.3-4.7 604) Airways Control Specialist ID - SHANNON GCOMPREHENSIVE METABOLIC [id number] 04:26:19 Test Item Value Reference Range Interpretation Comments TOTAL PROTEIN 6.4 gm/dL 6.0-8.3 (BEAKER) (test code = 770) ALBUMIN (BEAKER) 3.4 g/dL 3.5-5.0 L (test code = 1145) ALKALINE PHOSPHATASE 131 U/L 40-150 (BEAKER) (test code = 346) BILIRUBIN TOTAL 1.2 mg/dL 0.2-1.2 (BEAKER) (test code = 377) SODIUM (BEAKER) (test 138 meq/L 136-145 code = 381) POTASSIUM (BEAKER) 3.7 meq/L 3.5-5.1 (test code = 379) CHLORIDE (BEAKER) 107 meq/L 98-107 (test code = 382) CO2 (BEAKER) (test 23 meq/L 22-29 code = 355) BLOOD UREA NITROGEN 15 mg/dL 7-21 (BEAKER) (test code = 354) CREATININE (BEAKER) 0.73 mg/dL 0.57-1.25 (test code = 358) GLUCOSE RANDOM 108 mg/dL 70-105 H (BEAKER) (test code = 652) CALCIUM (BEAKER) 8.5 mg/dL 8.4-10.2 (test code = 697) AST (SGOT) (BEAKER) 24 U/L 5-34 (test code = 353) ALT (SGPT) (BEAKER) 17 U/L 6-55 (test code = 347) EGFR (BEAKER) (test 104 ESTIMATE D GFR IS code = 1092) mL/min/1.73 sq NOT ACCURA TE m CREATININE CLEARANCE IN PREDICTING GLOMERULAR FILTRATION RATE . ESTIMATED GFR I S NOT APPLICABLE FOR DIALYSIS PATIEN TS. Airways Control Specialist ID - SHANNON GCBC W/PLT COUNT & AUTO [id number] 03:33:37 Test Item Value Reference Range Interpretation Comments WHITE BLOOD CELL COUNT (BEAKER) 4.8 K/ L 3.5-10.5 (test code = 775) RED BLOOD CELL COUNT (BEAKER) 3.79 M/ L 4.63-6.08 L (test code = 761) HEMOGLOBIN (BEAKER) (test code = 10.0 GM/DL 13.7-17.5 L 410) HEMATOCRIT (BEAKER) (test code = 33.4 % 40.1-51.0 L 411) MEAN CORPUSCULAR VOLUME (BEAKER) 88.1 fL 79.0-92.2 (test code = 753) MEAN CORPUSCULAR HEMOGLOBIN 26.4 pg 25.7-32.2 (BEAKER) (test code = 751) MEAN CORPUSCULAR HEMOGLOBIN CONC 29.9 GM/DL 32.3-36.5 L (BEAKER) (test code = 752) RED CELL DISTRIBUTION WIDTH 17.1 % 11.6-14.4 H (BEAKER) (test code = 412) PLATELET COUNT (BEAKER) (test 147 K/CU MM 150-450 L code = 756) MEAN PLATELET VOLUME (BEAKER) 10.5 fL 9.4-12.4 (test code = 754) NUCLEATED RED BLOOD CELLS 0 /100 WBC 0-0 (BEAKER) (test code = 413) NEUTROPHILS RELATIVE PERCENT 64 % (BEAKER) (test code = 429) LYMPHOCYTES RELATIVE PERCENT 26 % (BEAKER) (test code = 430) MONOCYTES RELATIVE PERCENT 8 % (BEAKER) (test code = 431) EOSINOPHILS RELATIVE PERCENT 3 % (BEAKER) (test code = 432) BASOPHILS RELATIVE PERCENT 1 % (BEAKER) (test code = 437) NEUTROPHILS ABSOLUTE COUNT 3.06 K/ L 1.78-5.38 (BEAKER) (test code = 670) LYMPHOCYTES ABSOLUTE COUNT 1.24 K/ L 1.32-3.57 L (BEAKER) (test code = 414) MONOCYTES ABSOLUTE COUNT (BEAKER) 0.36 K/ L 0.30-0.82 (test code = 415) EOSINOPHILS ABSOLUTE COUNT 0.12 K/ L 0.04-0.54 (BEAKER) (test code = 416) BASOPHILS ABSOLUTE COUNT (BEAKER) 0.03 K/ L 0.01-0.08 (test code = 417) IMMATURE GRANULOCYTES-RELATIVE 0 % 0-1 PERCENT (BEAKER) (test code = 2801) HEMOGLOBIN [id number] 12:01:27 Test Item Value Reference Range Interpretation Comments HEMOGLOBIN A1C (BEAKER) (test code = 6.7 % 4.3-6.1 H 368) [id number] 07:53:18 Test Item Value Reference Range Interpretation Comments FERRITIN (BEAKER) (test code = 25.31 ng/mL 5.00-275.00 361) Airways Control Specialist ID - STEPHEN, TIBC, % SAT. (WITHOUT FERRITIN)2021-03-04 07:39:33 Test Item Value Reference Range Interpretation Comments IRON (BEAKER) (test code = 547) 33.0 ug/dL 40.0-160.0 L TOTAL IRON BINDING CAPACITY 439 ug/dL 250-450 (BEAKER) (test code = 769) IRON % SATURATION (2) (BEAKER) 8 % 20-55 L (test code = 2590) Airways Control Specialist ID - [id number] 05:22:57 Test Item Value Reference Range Interpretation Comments THYROID STIMULATING HORMONE 2.384 uIU/mL 0.350-4.940 (BEAKER) (test code = 772) Airways Control Specialist ID - SHANNON GT4, [id number] 05:22:56 Test Item Value Reference Range Interpretation Comments FREE T4 (BEAKER) (test code = 655) 0.99 ng/dL 0.70-1.48 Airways Control Specialist ID - SHANNON GC-REACTIVE [id number] 05:10:12 Test Item Value Reference Range Interpretation Comments C-REACTIVE PROTEIN (BEAKER) (test 0.27 mg/dL 0.00-0.50 code = 676) Airways Control Specialist ID - SHANNON GCOMPREHENSIVE METABOLIC [id number] 05:10:11 Test Item Value Reference Range Interpretation Comments TOTAL PROTEIN 6.8 gm/dL 6.0-8.3 Specimen sligh tly (BEAKER) (test code = hemoly zed 770) ALBUMIN (BEAKER) 3.5 g/dL 3.5-5.0 Specimen sl ightly (test code = 1145) hemolyzed ALKALINE PHOSPHATASE 130 U/L 40-150 (BEAKER) (test code = 346) BILIRUBIN TOTAL 0.9 mg/dL 0.2-1.2 Specimen sli ghtly (BEAKER) (test code = hemoly zed 377) SODIUM (BEAKER) (test 139 meq/L 136-145 code = 381) POTASSIUM (BEAKER) 4.5 meq/L 3.5-5.1 Specimen slightly (test code = 379) hemolyzed CHLORIDE (BEAKER) 109 meq/L 98-107 H (test code = 382) CO2 (BEAKER) (test 19 meq/L 22-29 L code = 355) BLOOD UREA NITROGEN 19 mg/dL 7-21 (BEAKER) (test code = 354) CREATININE (BEAKER) 1.04 mg/dL 0.57-1.25 Specimen slightly (test code = 358) hemolyzed GLUCOSE RANDOM 115 mg/dL 70-105 H (BEAKER) (test code = 652) CALCIUM (BEAKER) 8.4 mg/dL 8.4-10.2 (test code = 697) AST (SGOT) (BEAKER) 32 U/L 5-34 Specimen slightly (test code = 353) hemolyzed ALT (SGPT) (BEAKER) 12 U/L 6-55 Specimen slightly (test code = 347) hemolyzed EGFR (BEAKER) (test 69 mL/min/1.73 ESTIMA MEGA GFR IS code = 1092) sq m NOT ACCURATE CREATININE CLEARANCE IN PREDICTING GLOMERULAR FILTRATION RATE . ESTIMATED GFR I S NOT APPLICABLE FOR DIALYSIS PATIEN TS. Airways Control Specialist ID - SHANNON GLIPID [id number] 05:10:11 Test Item Value Reference Range Interpretation Comments TRIGLYCERIDES (BEAKER) 98 mg/dL Speci men slightly (test code = 540) hemolyzed CHOLESTEROL (BEAKER) 76 mg/dL Specime n slightly (test code = 631) hemolyzed HDL CHOLESTEROL (BEAKER) 28 mg/dL (test code = 976) LDL CHOLESTEROL 28 mg/dL CALCULATED (BEAKER) (test code = 633) Triglyceride Reference Range: Low Risk <150 Borderline 150-199 High Risk 200-499 Very High Risk >=500Cholesterol Reference Range: Low Risk <200 Borderline 200-239 High Risk >240HDL Cholesterol Reference Range: Low Risk >=60 High Risk <40LDL Cholesterol Reference Range: Optimal <100 Near Optimal 100-129 Borderline 130-159 High 160-189 Very High >=190 Airways Control Specialist ID - [id number] 05:10:10 Test Item Value Reference Range Interpretation Comments MAGNESIUM (BEAKER) 2.0 mg/dL 1.6-2.6 Specimen slightly (test code = 627) hemolyzed [employer] Control Specialist ID - SHANNON [id number] 05:10:10 Test Item Value Reference Range Interpretation Comments PHOSPHORUS (BEAKER) 4.8 mg/dL 2.3-4.7 H Specimen slightly (test code = 604) hemolyzed Airways Control Specialist ID Aviva ORTEGA GHIGH SENSITIVITY TROPONIN [id number] 05:08:05 Test Item Value Reference Range Interpretation Comments HIGH SENSITIVITY 6 pg/ml See_Comment [Automated message] TROPONIN I (test code = The system which 4699120) generated this result transmitted ref erence range: <=35. Th e reference range was not used to interpr et this result as normal/abnormal . Airways Control Specialist ID - SHANNON GThe PAVING SUPERVISOR STAT High Sensitivity Troponin-I results should be used in conjunction with other diagnostic information such as ECG, clinical observations and information, and patient symptoms to aid in the diagnosis of GA.B-TYPE NATRIURETIC FACTOR (BNP)2021-03-04 05:07:44 Test Item Value Reference Range Interpretation Comments B-TYPE NATRIURETIC PEPTIDE (BEAKER) 322 pg/mL 0-100 H (test code = 700) Airways Control Specialist ID Aviva ORTEGA GCBC W/PLT COUNT & AUTO [id number] 04:49:34 Test Item Value Reference Range Interpretation Comments WHITE BLOOD CELL COUNT (BEAKER) 5.3 K/ L 3.5-10.5 (test code = 775) RED BLOOD CELL COUNT (BEAKER) 3.80 M/ L 4.63-6.08 L (test code = 761) HEMOGLOBIN (BEAKER) (test code = 10.2 GM/DL 13.7-17.5 L 410) HEMATOCRIT (BEAKER) (test code = 34.2 % 40.1-51.0 L 411) MEAN CORPUSCULAR VOLUME (BEAKER) 90.0 fL 79.0-92.2 (test code = 753) MEAN CORPUSCULAR HEMOGLOBIN 26.8 pg 25.7-32.2 (BEAKER) (test code = 751) MEAN CORPUSCULAR HEMOGLOBIN CONC 29.8 GM/DL 32.3-36.5 L (BEAKER) (test code = 752) RED CELL DISTRIBUTION WIDTH 17.3 % 11.6-14.4 H (BEAKER) (test code = 412) PLATELET COUNT (BEAKER) (test 158 K/CU MM 150-450 code = 756) MEAN PLATELET VOLUME (BEAKER) 11.6 fL 9.4-12.4 (test code = 754) NUCLEATED RED BLOOD CELLS 0 /100 WBC 0-0 (BEAKER) (test code = 413) NEUTROPHILS RELATIVE PERCENT 64 % (BEAKER) (test code = 429) LYMPHOCYTES RELATIVE PERCENT 26 % (BEAKER) (test code = 430) MONOCYTES RELATIVE PERCENT 7 % (BEAKER) (test code = 431) EOSINOPHILS RELATIVE PERCENT 2 % (BEAKER) (test code = 432) BASOPHILS RELATIVE PERCENT 1 % (BEAKER) (test code = 437) NEUTROPHILS ABSOLUTE COUNT 3.41 K/ L 1.78-5.38 (BEAKER) (test code = 670) LYMPHOCYTES ABSOLUTE COUNT 1.38 K/ L 1.32-3.57 (BEAKER) (test code = 414) MONOCYTES ABSOLUTE COUNT (BEAKER) 0.39 K/ L 0.30-0.82 (test code = 415) EOSINOPHILS ABSOLUTE COUNT 0.09 K/ L 0.04-0.54 (BEAKER) (test code = 416) BASOPHILS ABSOLUTE COUNT (BEAKER) 0.03 K/ L 0.01-0.08 (test code = 417) IMMATURE GRANULOCYTES-RELATIVE 0 % 0-1 PERCENT (BEAKER) (test code = 2801) RAD, CHEST, 2 [id number] 16:40:00Reason for Exam:->I43 [facility] 1945 Sex: MFINAL REPORT HISTORY: Cardiomyopathy COMPARISON: 07/27/2020, 08/14/2020 FINDINGS: The lungs are clear. There is a small right pleural effusion. The heart shadow is borderline enlarged. Sternotomy wires are present as is a left atrial appendage closure device. The thoracicaorta is mildly tortuous and calcified. Degenerative changes are present in the spine. IMPRESSION: Small right pleural effusion. Signed: Reuben Grimm Verified Date/Time: 12/28/2020 16:40:10 Reading Location: [facility] Radiology Reading Room PYP SCAN, INFARCT IMAGING, [id number] 15:01:00Reason for Exam:->ATTR [facility] : 1945 Sex: MFINAL REPORT PROCEDURE: TECHNETIUM PYROPHOSPHATE (PYP) PLANAR \T\ SPEC T IMAGING CPT CODE: 87545, 42121 INDICATION: Heart Failure, evaluate possible ATTR cardiac amyloidosisBMI: 34.1 IMAGING PROTOCOL:20.1 mCi of Tc-99m pyrophosphate was injected intravenously at rest. Planar images of the chest were obtained 3-4 hours after tracer injection. Sbet-ug-bunex chest ratio of a ctivity was calculated from planar images. SPECT (tomographic) images of the chest were also obtained to further define cardiac-region activity. FINDINGS:Myocardial Activity Grade: 2 (myocardial activity equals rib uptake).Heart to Contralateral Chest Ratio: 1.07.Extracardiac Activity: Tracer distribution is irregular in the spine. IMPRESSION:1. 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 Degenerative disease of the spine.3. There is no prior study for comparison. Signed: Favian Montalvo MDReport Verified Date/Time: 10/06/2020 15:01:15 Reading Location:[address] [place] [address] [facility] Reading Room Electronically signed by: FAVIAN MONTALVO MD on 10/06 03:01 PMXR CHEST 2 [id number] 15:42:15HISTORY: Hemorrhage of rectum and anus. TECHNIQUE: PA and lateral views of the chest are obtained. No prior cheststudy available for comparison. FINDINGS: No acute pneumonia detected. No pneumothorax or pleural effusionor pulmonary congestion. Cardiothoracic ratio of approximately 17.8/34.8 cmis consistent with mild cardiomegaly. Midline sternotomy sutures from prioropen thoracic surgery for coronarybypass as well as for placement ofocclusive device in the left atrium noted. CONCLUSIONS: Mild cardiomegaly. No signs of acute cardiopulmonary disease.[facility], Radiant Results Inft User - 08/25/2020 10:43AM CDTHISTORY: Hemorrhage of rectum and anus.TECHNIQUE: PA and lateral views of the chest are obtained. No prior cheststudy available for comparison.FINDINGS: No acute pneumonia detected. No pneumothorax or pleural effusionor pulmonary congestion. Cardiothoracic ratio of approximately 17.8/34.8 cmis consistent with mild cardiomegaly. Midline sternotomy sutures from prioropen thoracic surgery for coronary bypass as well as for placement ofocclusive device in the left atrium noted.CONCLUSIONS: Mild cardiomegaly. No signs of acute cardiopulmonary disease.[facility] T[facility] IF [id number] 15:41:00 Test Item Value Reference Range Interpretation Comments THYROID STIMULATING HORMONE 2.323 uIU/mL 0.350-4.940 (BEAKER) (test code = 772) Airways Control Specialist ID - DBSARS-COV2/INFLUENZA/RSV DG-[id number] 15:38:00 Test Item Value Reference Range Interpretation Comments SARS-COV2/RT-PCR Negative Negative (test code = 3037518) INFLUENZA A RT-PCR Negative Negative (test code = 1159760) INFLUENZA B RT-PCR Negative Negative (test code = 1965850) RSV RT-PCR (test Negative Negative Performanc e of the Xpert code = 9981047) Xpress SARS- CoV-2/Flu/RSV test has only b een established in nasopharyngeal swab specimens. Use of the Xpert Xpress SARS-CoV-2/Flu/ RSV test with other spec imen types has not been as sessed and performance characteristics are unknown. As wi any molecular test, mutations within the targ eted genetic regions identified by he Xpert Xpress SARS-CoV -2/Flu/RSV test could affe ct primer and/or probe bi nding resulting in fa ilure to detect the pres ence of virus or the vi dimitris being detected less predictably.Neg ative results do not preclude SARS-CoV-2, Inf luenza A/B, or RSV inf ection and should not be u sed as the sole basis for treatment or other patien t management deci sions. Results from e Xpert Xpress SARS-CoV -2/Flu/RSV test should be correlated with the clinic al history, epidem iological data, and other data available to e clinician evalu ating the patient. Inval id test results may occ ur from improper specim en collection; clementine lure to follow the guillermo mmended sample collecti on, handling, and s torage procedures; joaquin hnical error. False ne gative results may occ ur if virus is presen t at levels below e analytical limi t of detection (LOD: 131 copies/mL). Vi ral nucleic acid ma y persist in vivo, indepe ndent of virus viability . Detection of an alyte target(s) does not imply that the corres ponding virus(es) are i nfectious or are the caus ative agents for clin ical symptoms. Rece nt patient exposure to Flu Mist or other live atte nuated influenza vacci theresa may cause inaccurat e positive results.This te st has been authorized by FDA under an EUA fo r use by authorized labo ratories. This test is on ly authorized for the duration of the declaration mya t circumstances e xist justifying the authorization o f emergency use o f in vitro diagnostic test s for detection and/o r diagnosis of CO VID-19 under Section 5 64(b)(1) of the Federal Food, Drug and Cosmetic Ac t, 21 U.S.C. 360bbb -3(b)(1), unless the auth orization is terminated o r revoked sooner.Fact She et for Healthcare Prov iders: https://www.cep heid.com/D ocuments/Xpert% 20Xpress%2 6VXTK-DpT-7-Flu -RSV/302-4 508%20Rev.%20B% 20HCP%20Fa ct%20Sheet.pdfF act Sheet for Healthcare Patients: https://www.daPulse heid.com/D ocuments/Xpert% 20Xpress%2 1ZBQI-NjO-7-Flu -RSV/302-4 507%20Rev.%20B% 20Patient% 20Fact%20Sheet. pdf TROPONIN [id number] 14:53:00 Test Item Value Reference Range Interpretation Comments TROPONIN I (BEAKER) (test code = 397) < ng/mL 0.00-0.03 Troponin I (TnI) levels must be interpreted in the context of the presenting symptoms and the clinical findings. Elevated TnI levels indicate myocardial damage, but are not specific for ischemic heart disease. Elevated TnI levels are seen in patients with other cardiac conditions (including myocarditis and congestive heart failure), and slight TnI elevations occur in patients with other conditions, including sepsis, renal failure, acidosis, acute neurological disease, and persistent tachyarrhythmia.Airways Control Specialist ID - DBB-TYPE NATRIURETIC FACTOR (BNP)2020-08-14 14:46:00 Test Item Value Reference Range Interpretation Comments B-TYPE NATRIURETIC PEPTIDE (BEAKER) 152 pg/mL 0-100 H (test code = 700) Airways Control Specialist ID - DBCOMPREHENSIVE METABOLIC [id number] 14:46:00 Test Item Value Reference Range Interpretation Comments TOTAL PROTEIN 7.0 gm/dL 6.0-8.3 Specimen moder ately (BEAKER) (test code = hemoly zed 770) ALBUMIN (BEAKER) 3.5 g/dL 3.5-5.0 Specimen mo derately (test code = 1145) hemolyzed ALKALINE PHOSPHATASE 100 U/L 40-150 (BEAKER) (test code = 346) BILIRUBIN TOTAL 1.0 mg/dL 0.2-1.2 Specimen mod erately (BEAKER) (test code = hemoly zed 377) SODIUM (BEAKER) (test 139 meq/L 136-145 code = 381) POTASSIUM (BEAKER) 4.6 meq/L 3.5-5.1 Specimen moderately (test code = 379) hemolyzed CHLORIDE (BEAKER) 106 meq/L 98-107 (test code = 382) CO2 (BEAKER) (test 23 meq/L 22-29 code = 355) BLOOD UREA NITROGEN 17 mg/dL 7-21 (BEAKER) (test code = 354) CREATININE (BEAKER) 1.01 mg/dL 0.57-1.25 Specimen moderately (test code = 358) hemolyzed GLUCOSE RANDOM 143 mg/dL 70-105 H (BEAKER) (test code = 652) CALCIUM (BEAKER) 8.0 mg/dL 8.4-10.2 L (test code = 697) AST (SGOT) (BEAKER) 31 U/L 5-34 Specimen moderately (test code = 353) hemolyzed ALT (SGPT) (BEAKER) 15 U/L 6-55 Specimen moderately (test code = 347) hemolyzed EGFR (BEAKER) (test 72 mL/min/1.73 ESTIMA MEGA GFR IS code = 1092) sq m NOT ACCURATE CREATININE CLEARANCE IN PREDICTING GLOMERULAR FILTRATION RATE . ESTIMATED GFR I S NOT APPLICABLE FOR DIALYSIS PATIEN TS. Airways Control Specialist ID - DBBLOOD GAS, [id number] 14:21:00 Test Item Value Reference Range Interpretation Comments PH VENOUS (BEAKER) (test code = 7.37 7.32-7.42 701) PCO2 VENOUS (BEAKER) (test code = 48 mm Hg 41-51 755) PO2 VENOUS (BEAKER) (test code = 29 mm Hg 25-40 702) O2 SATURATION VENOUS (BEAKER) 53.0 % 40.0-70.0 (test code = 703) HCO3 VENOUS (BEAKER) (test code = 27 mmol/L 21-29 705) BASE EXCESS VENOUS (BEAKER) (test 1.0 mmol/L -2.0-3.0 code = 704) PATIENT TEMPERATURE (BEAKER) (test 37.0 code = 1818) FIO2 (BEAKER) (test code = 1819) 21.0 CBC W/PLT COUNT & AUTO [id number] 14:21:00 Test Item Value Reference Range Interpretation Comments WHITE BLOOD CELL COUNT (BEAKER) 4.9 K/ L 3.5-10.5 (test code = 775) RED BLOOD CELL COUNT (BEAKER) 3.53 M/ L 4.63-6.08 L (test code = 761) HEMOGLOBIN (BEAKER) (test code = 11.3 GM/DL 13.7-17.5 L 410) HEMATOCRIT (BEAKER) (test code = 35.3 % 40.1-51.0 L 411) MEAN CORPUSCULAR VOLUME (BEAKER) 100.0 fL 79.0-92.2 H (test code = 753) MEAN CORPUSCULAR HEMOGLOBIN 32.0 pg 25.7-32.2 (BEAKER) (test code = 751) MEAN CORPUSCULAR HEMOGLOBIN CONC 32.0 GM/DL 32.3-36.5 L (BEAKER) (test code = 752) RED CELL DISTRIBUTION WIDTH 14.6 % 11.6-14.4 H (BEAKER) (test code = 412) PLATELET COUNT (BEAKER) (test 173 K/CU MM 150-450 code = 756) MEAN PLATELET VOLUME (BEAKER) 10.7 fL 9.4-12.4 (test code = 754) NUCLEATED RED BLOOD CELLS 0 /100 WBC 0-0 (BEAKER) (test code = 413) NEUTROPHILS RELATIVE PERCENT 60 % (BEAKER) (test code = 429) LYMPHOCYTES RELATIVE PERCENT 28 % (BEAKER) (test code = 430) MONOCYTES RELATIVE PERCENT 8 % (BEAKER) (test code = 431) EOSINOPHILS RELATIVE PERCENT 3 % (BEAKER) (test code = 432) BASOPHILS RELATIVE PERCENT 1 % (BEAKER) (test code = 437) NEUTROPHILS ABSOLUTE COUNT 2.94 K/ L 1.78-5.38 (BEAKER) (test code = 670) LYMPHOCYTES ABSOLUTE COUNT 1.35 K/ L 1.32-3.57 (BEAKER) (test code = 414) MONOCYTES ABSOLUTE COUNT (BEAKER) 0.41 K/ L 0.30-0.82 (test code = 415) EOSINOPHILS ABSOLUTE COUNT 0.13 K/ L 0.04-0.54 (BEAKER) (test code = 416) BASOPHILS ABSOLUTE COUNT (BEAKER) 0.03 K/ L 0.01-0.08 (test code = 417) IMMATURE GRANULOCYTES-RELATIVE 0 % 0-1 PERCENT (BEAKER) (test code = 2801) RAD, CHEST, 2 [id number] 13:47:00Reason for exam:->SHORTNESS OF BREATH [facility] 1945 Sex: MFINAL REPORT TECHNIQUE: Frontal and lateral views of the chest. INDICA TION: SHORTNESS OF BREATH COMPARISON: 07/27/2020. FINDINGS: LINES/TUBES: None. LUNGS: The lungs are well inflated and clear. No consolidation or pulmonary edema. PLEURA: Small right-sided pleural effusion. No pneumothorax.. HEART AND MEDIASTINUM: The cardiomediastinal silhouette is enlarged, unchanged. Postsurgical changes from median sternotomy.. SOFT TISSUES AND BONES: Unremarkable. IMPRESSION:Small right-sided pleural effusion. Stable cardiomegaly.. Signed: Len Montague MDReport Verified Date/Time: 08/14/2020 13:47:13 Reading Location: [place] [address] CT Body Reading Room CT, CHEST WITH IV CONTRAST- PE TEST [id number] 15:31:00Unlisted Reason for Exam - Click Yes and Enter Reason Below->Yes Unlisted Reason for Exam->R06.02[facility] : 1945 Sex: MFINAL REPORT CT, CHEST WITH IV CONTRAST- PE TEST DESIGN HISTORY: Adrián allen of icpesaZ53.02 COMPARISON: CT chest 01/16/2011 TECHNIQUE: CT chest with intravenous contrast in the pulmonary artery phase. Dose modulation, iterative reconstruction, and/or weight-based adjustment of the mA/kV was utilized to reduce the radiation dose to as low as reasonably achievable. FINDINGS: Mildly motion degraded exam. Pulmonary artery: The main pulmonary pulmonary artery is normal in size. The pulmonary artery is well opacified, with no filling defect seen given limitations of respiratory motion. Other cardiovascular findings: Ectasia of the ascending thoracic aorta up to 45 mm. Extensive coronary artery calcifications. Moderate atherosclerotic calcifications of the thoracic aorta and branch vessels. Postsurgical changes of CABG. Marked cardiomegaly Lungs: Respiratory motion artifact. Compressive atelectasis in the right lower lobe related to the patient's pleural effusion. A calcified left lower lobe pulmonary nodule related to old granulomatous diseaseCentral airways: Expiratory phase of imaging with bowing of the posterior membrane.Pleura: Moderate right pleural effusion.Lymph nodes: A few scattered subcentimeter short axis mediastinal lymph nodes are nonspecific but likely reactiveThyroid gland: UnremarkableEsophagus: UnremarkableIncluded upper abdomen: Reflux of contrast in the hepatic veins suggesting elevated right heart pressures. Cholecystectomy clips. Moderate spl enomegaly, 15 cm long axis.Bones: Median sternotomy wires. Degenerative disc diseaseChest wall: Unremarkable. IMPRESSION: 1.No evidence of an acute pulmonary embolism on this exam. 2.Moderate right pleural effusion with resulting atelectasis.3.Cardiomegaly, coronary artery calcifications, and changesof CABG.4.Ectasia of the ascending thoracic aorta up to 45 mm. Recommend 6-12 month follow-up CTA chest.5.Moderate splenomegaly Signed: Artie Gonsalves Verified Date/Time: 08/12/2020 15:31:14 [id number] 15:24:00 Test Item Value Reference Range Interpretation Comments POC-CREATININE 1.0 mg/dL 0.6-1.3 : TESTED AT [facility] (BEAKER) (test [address] code = 1859) [place], [address]: Airways Control Specialist/Techni bridgette ID = [id number] for Kaela Navas POC-EGFR (BEAKER) 73 mL/min/1.73M2 (test code = 1860) RAD, CHEST, 2 [id number] 17:53:00Reason for Exam:->l25.10 [facility] 1945 Sex: MFINAL REPORT RAD, CHEST, 2 VIEWS TECHNIQUE: Frontal and lateral views of the chest. INDICATION: l25.10 COMPARISON: Chest radiograph 08/26/2012. IMPRESSION: Lungs: The lungs are well inflated and clear. No consolidation or pulmonary edema. Pleura: No pleural effusion or pneumothorax. Heart and Mediastinum: Cardiomegaly. Mediastinal surgical clips. Tortuous thoracic aorta w ith knob calcifications, atrial appendage closure device, mild central vascular congestion. Lines/Tubes: None. Soft Tissues and Bones: Median sternotomy wires. Signed: Artie Gonsalves Verified Date/Time: 07/27/2020 17:53:18 -COV2/RT-PCR ([facility])2020-05-31 12:47:00 Test Item Value Reference Range Interpretation Comments SARS-COV2/RT-PCR (test Negative Not Detected, Negative, code = 6352154) See external report for linked test SARS-COV-2 PERFORMING LAB [facility] (test code = 5854160) Negative result for this test determines that SARS-CoV-2 RNA was not present in the specimen above the Limit of Detection (LOD). However, Negative results do not preclude SARS-CoV-2 infection and should not be used as the sole basis for treatment or patient management decisions. Negative results mustbe combined with clinical observations, patient history, and epidemiological information. A false negative result may occur if a specimen is improperly collected, transported or handled. A false negative result should be considered if patient's recent exposures or clinical presentation indicate that COVID-19 (SARS-CoV-2) is likely and diagnostic tests for other causes of illness are negative. Re-testing should be considered in cases of suspected false negatives.The limit of detection for this assay is 800 copies/mL.This SARS CoV-2 test is a real-time RT-PCR test intended for the qualitative detection of nucleic acid from SARS-CoV-2 in a nasopharyngeal swab specimen collected from individuals susp ected of COVID-19 by their healthcare provider.This test has not been Food and Drug Administration (FDA) cleared or approved. This is a modified version of an approved Emergency Use Authorization (EUA) and is in the process of review by the FDA. Once authorized by the FDA, the issued EUA will be effective until the declaration that circumstances exist justifying the authorization of the emergency use of in vitro diagnostic tests for detection and/or diagnosis of COVID-19 is terminated under Section 564(b)(2) of the Act or the EUA is revoked under Section 564(g) of the Act.Fact Sheet for Healthcare Providers:https://www.MediaLifTV.Shopping Buddy/sites/default/files/product/documents/Fact_Shee g_TV_Hwjacantu_Mfky_AREN-XlH-6.pdfFact Sheet for Healthcare Patients:https://www.MediaLifTV.[employer]dy/sites/default/files/product/ documents/Nuva_Bampq_Hfdlvfqp_Pxkp_ZGJW-AtF-2.pdfPerforming Laboratory:[facility], [place] [address]JGEIKUTCKCP TIME/INR 2020-05-31 08:11:00 Test Item Value Reference Range Interpretation Comments PROTIME (BEAKER) (test code = 17.1 seconds 11.9-14.2 H 759) INR (BEAKER) (test code = 370) 1.45 <=5.90 Effective 10/16/2018: PT Reference Range ChangeNew: 11.9-14.2 Previous: 11.7- 14.7RECOMMENDED COUMADIN/WARFARIN INR THERAPY RANGESSTANDARD DOSE: 2.0-3.0 Includes: PROPHYLAXIS for venous thrombosis, systemic embolization; TREATMENT for venous thrombosis and/or pulmonary embolus.HIGH RISK: Target INR is2.5-3.5 for patients wiht mechanical heart valves.SARS-COV2/RT-PCR ([facility]) 2020-05-10 11:24:00 Test Item Value Reference Range Interpretation Comments SARS-COV2/RT-PCR (test Negative Not Detected, Negative, code = 3429547) See external report for linked test SARS-COV-2 PERFORMING LAB [facility] (test code = 0796495) Negative result for this test determines that SARS-CoV-2 RNA was not present in the specimen above the Limit of Detection (LOD). However, Negative results do not preclude SARS-CoV-2 infection and should not be used as the sole basis for treatment or patient management decisions. Negative results mustbe combined with clinical observations, patient history, and epidemiological information. A false negative result may occur if a specimen is improperly collected, transported or handled. A false negative result should be considered if patient's recent exposures or clinical presentation indicate that COVID-19 (SARS-CoV-2) is likely and diagnostic tests for other causes of illness are negative. Re-testing should be considered in cases of suspected false negatives.The limit of detection for this assay is 800 copies/mL.This SARS CoV-2 test is a real-time RT-PCR test intended for the qualitative detection of nucleic acid from SARS-CoV-2 in a nasopharyngeal swab specimen collected from individuals susp ected of COVID-19 by their healthcare provider.This test has not been Food and Drug Administration (FDA) cleared or approved. This is a modified version of an approved Emergency Use Authorization (EUA) and is in the process of review by the FDA. Once authorized by the FDA, the issued EUA will be effective until the declaration that circumstances exist justifying the authorization of the emergency use of in vitro diagnostic tests for detection and/or diagnosis of COVID-19 is terminated under Section 564(b)(2) of the Act or the EUA is revoked under Section 564(g) of the Act.Fact Sheet for Healthcare Providers:https://www.Sitefly/sites/default/files/product/documents/Fact_Nick pachecol_NR_Rtrzjkcef_Ugpp_LWZZ-NiP-2.pdfFact Sheet for Healthcare Patients:https://www.Sitefly/sites/default/files/product/ documents/Aoui_Tkqfv_Paxkmjxr_Qcvt_SXQU-BeB-3.pdfPerforming Laboratory:[facility], [place] [address]VVIOP METABOLIC PANEL 2020-05-10 08:22:00 Test Item Value Reference Range Interpretation Comments SODIUM (BEAKER) 137 meq/L 136-145 (test code = 381) POTASSIUM (BEAKER) 4.1 meq/L 3.5-5.1 (test code = 379) CHLORIDE (BEAKER) 101 meq/L 98-107 (test code = 382) CO2 (BEAKER) (test 25 meq/L 22-29 code = 355) BLOOD UREA NITROGEN 22 mg/dL 7-21 H (BEAKER) (test code = 354) CREATININE (BEAKER) 0.92 mg/dL 0.57-1.25 (test code = 358) GLUCOSE RANDOM 133 mg/dL 70-105 H (BEAKER) (test code = 652) CALCIUM (BEAKER) 8.7 mg/dL 8.4-10.2 (test code = 697) EGFR (BEAKER) (test 80 mL/min/1.73 ESTIMA MEGA GFR IS code = 1092) sq m NOT ACCURATE CREATININE CLEARANCE IN PREDICTING GLOMERULAR FILTRATION RATE . ESTIMATED GFR I S NOT APPLICABLE FOR DIALYSIS PATIEN TS. Airways Control Specialist ID - SHADI FCBC W/PLT COUNT & AUTO [id number] 08:05:00 Test Item Value Reference Range Interpretation Comments WHITE BLOOD CELL COUNT (BEAKER) 6.1 K/ L 3.5-10.5 (test code = 775) RED BLOOD CELL COUNT (BEAKER) 4.69 M/ L 4.63-6.08 (test code = 761) HEMOGLOBIN (BEAKER) (test code = 14.9 GM/DL 13.7-17.5 410) HEMATOCRIT (BEAKER) (test code = 44.9 % 40.1-51.0 411) MEAN CORPUSCULAR VOLUME (BEAKER) 95.7 fL 79.0-92.2 H (test code = 753) MEAN CORPUSCULAR HEMOGLOBIN 31.8 pg 25.7-32.2 (BEAKER) (test code = 751) MEAN CORPUSCULAR HEMOGLOBIN CONC 33.2 GM/DL 32.3-36.5 (BEAKER) (test code = 752) RED CELL DISTRIBUTION WIDTH 14.1 % 11.6-14.4 (BEAKER) (test code = 412) PLATELET COUNT (BEAKER) (test 160 K/CU MM 150-450 code = 756) MEAN PLATELET VOLUME (BEAKER) 10.6 fL 9.4-12.4 (test code = 754) NUCLEATED RED BLOOD CELLS 0 /100 WBC 0-0 (BEAKER) (test code = 413) NEUTROPHILS RELATIVE PERCENT 58 % (BEAKER) (test code = 429) LYMPHOCYTES RELATIVE PERCENT 30 % (BEAKER) (test code = 430) MONOCYTES RELATIVE PERCENT 7 % (BEAKER) (test code = 431) EOSINOPHILS RELATIVE PERCENT 3 % (BEAKER) (test code = 432) BASOPHILS RELATIVE PERCENT 1 % (BEAKER) (test code = 437) NEUTROPHILS ABSOLUTE COUNT 3.57 K/ L 1.78-5.38 (BEAKER) (test code = 670) LYMPHOCYTES ABSOLUTE COUNT 1.84 K/ L 1.32-3.57 (BEAKER) (test code = 414) MONOCYTES ABSOLUTE COUNT (BEAKER) 0.45 K/ L 0.30-0.82 (test code = 415) EOSINOPHILS ABSOLUTE COUNT 0.20 K/ L 0.04-0.54 (BEAKER) (test code = 416) BASOPHILS ABSOLUTE COUNT (BEAKER) 0.04 K/ L 0.01-0.08 (test code = 417) IMMATURE GRANULOCYTES-RELATIVE 0 % 0-1 PERCENT (BEAKER) (test code = 2141)
[2021-05-11] MEDS ORDERED: CEFAZOLIN SODIUM 1 GM/VIAL ONE (12:57)
[2021-05-11] MEDS ORDERED: TETANUS & DIPHTHERIA TOX,ADULT 0.5 ML VIAL ONE (12:58)
[2021-05-11 13:10] LABS: Absolute Lymphocytes (CBC) 2.1 K/uL (0.7-4.9); Basophils % 0.7 % (0-1.3); Hematocrit 37.7 % (39.6-49.0); Lymphocytes % 31.8 % (15.3-44.8); MPV 8.4 fL (7.6-11.3); RBC Red Blood Cell Count 4.53 M/uL (4.33-5.43)
[2021-05-11 13:13] LABS: Protime INR 1.6
--- NOTE | 2021-05-11 13:16 | RAD REPORT ---
EXAM DESCRIPTION: RAD - Hand Right 3 View - 05/11/2021 1:09 pm CLINICAL HISTORY: PAIN COMPARISON: No comparisons FINDINGS: Laceration with comminuted fracture of the thumb distal phalanx. This is along the mid and proximal aspect of the phalanx. There is intra-articular extension. Scattered degenerative changes i ncluding at the first through third MCP joints as well as narrowing at the interphalangeal joints. Pe ripheral vascular calcifications. No radiopaque foreign body. Probably remote avulsion injury at the base of the thumb proximal phalanx at the MCP joint. IMPRESSION: Comminuted fracture of the distal phalanx of the thumb. No radiopaque foreign body.
--- NOTE | 2021-05-11 14:03 | ER ---
Nurse's Notes [facility] Name: Seymour Osuna Age: 75 yrs Sex: Male : 1945 Arrival Date: 05/11/2021 Time: 12:05 Bed 2 Private MD: Diagnosis: Partial Amputation Right Thumb Presentation: 05/11 12:30 Chief complaint: Patient states: cut his left thumb with table saw, finger is open down iw to bone. Coronavirus screen: At this time, the client does not indicate any symptoms associated with coronavirus-19. Ebola Screen: Patient negative for fever greater than or equal to 101.5 degrees Fahrenheit, and additional compatible Ebola Virus Disease symptoms Patient denies exposure to infectious person. Patient denies travel to an Ebola-affected area in the 21 days before illness onset. No symptoms or risks identified at this time. Initial Sepsis Screen: Does the patient meet any 2 criteria? No. Patient's initial sepsis screen is negative. Does the patient have a suspected source of infection? No. Patient's initial sepsis screen is negative. Risk Assessment: Do you want to hurt yourself or someone else? Patient reports no desire to harm self or others. Onset of symptoms was May 11, 2021. 12:30 Method Of Arrival: Ambulatory iw 12:30 Acuity: PETTY 3 iw Triage Assessment: 13:59 General: Appears in no apparent distress. Behavior is calm, cooperative. Pain: Denies smith pain. Injury Description: Avulsion sustained to palmar aspect of distal phalanx of right thumb and palmar aspect of proximal phalanx of right thumb. Historical: - Allergies: 12:32 No Known Allergies; iw - Home Meds: 12:32 potassium chloride 20 mEq Oral TbER 1 tab 2 times per day [Active]; allopurinol 300 mg iw Oral tab 1 tab once daily [Active]; apixaban 5 mg oral tab 1 tab 2 times per day [Active]; lisinopril 10 mg Oral tab 1 tab once daily [Active]; metoprolol succinate 100 mg oral CSpX 1 cap once daily [Active]; furosemide 20 mg Oral tab 1 tab once daily [Active]; atorvastatin 80 mg oral tab 1 tab once daily [Active]; cholecalciferol (vitamin D3)-vitamin K2 oral daily [Active]; Farxiga 5 mg oral tab 1 tab once daily [Active]; - PMHx: 12:32 Hypercholesterolemia; Hypertensive disorder; iw - PSHx: 12:32 back and knee SX; Coronary artery bypass graft; hernia repair x 2; iw - Immunization history:: Adult Immunizations up to date. - Social history:: Smoking status: Patient denies any tobacco usage or history of. Screenin:44 Abuse screen: Denies threats or abuse. Denies injuries from another. Nutritional jg9 screening: No deficits noted. Tuberculosis screening: No symptoms or risk factors identified. Fall Risk None identified. Assessment: 12:44 General: Appears in no apparent distress. Behavior is calm, Smells of. Musculoskeletal: jg9 Amputation of Other: right thumb partial amputation-bleeding controlled, gauze bandage in place. Vital Signs: 12:30 BP 110 / 67; Pulse 64; Resp 14 S; Pulse Ox 99% on R/A; Weight 90.72 kg (R); Height 5 jg9 ft. 6 in. (167.64 cm) (R); 13:53 BP 111 / 57; Pulse 73; Resp 18; Pulse Ox 100% on R/A; smith 12:30 Body Mass Index 32.28 (90.72 kg, 167.64 cm) jg9 ED Course: 12:05 Patient arrived in ED. ds1 12:30 Ton Medina PA is PHCP. jr8 12:30 Tapan Amaya MD is Attending Physician. jr8 12:32 Triage completed. iw 12:36 Arm band placed on. iw 12:43 Inserted saline lock: 20 gauge in left antecubital area, using aseptic technique. jg9 13:03 Protime (+inr) Sent. smith 13:03 Ptt, Activated Sent. smith 13:09 XRAY Hand RIGHT 3 View In Process Unspecified. EDMS 13:54 EKG done, by ED staff, reviewed by Ton DIMAS. dh3 13:57 No provider procedures requiring assistance completed. Inserted saline lock:. smith 13:58 Patient has correct armband on for positive identification. Bed in low position. smith 13:58 Patient admitted, IV remains in place. smith 14:01 Tapan Amaya MD is Hospitalizing Provider. smith 14:03 Ravindra Matta MD is Hospitalizing Provider. jr8 Administered Medications: 13:51 Drug: Tetanus-Diphtheria Toxoid Adult 0.5 ml {Engraver Automatic: [employer]. Exp: smith 10/01/2022. Lot #: [id number]. } Route: IM; Site: left deltoid; 13:53 Follow up: Response: No adverse reaction smith Outcome: 13:57 Admitted to OR accompanied by nurse, via wheelchair. smith 13:57 Condition: good 13:57 Instructed on the need for admit. 14:02 Decision to Hospitalize by Provider. smith 14:02 Patient left the ED. smith 14:17 Patient left the ED. smith Signatures: Dispatcher [employer] EDHI Yanci Edwards dsJolly Rocha RN RN iw Roszak, Josh, PA PA jr8 Conchita Meza3 Jen Dietz9 Aidee Hill
[2021-05-11] MEDS ORDERED: Ringers Lactate 1,000 ML IV ONE (14:10)
[2021-05-11] MEDS ORDERED: LIDOCAINE 1% MPF 30 ML VIAL ONE (14:13)
[2021-05-11 14:14] VITALS: O2SAT 100
--- NOTE | 2021-05-11 14:18 | EDPHYS ---
Physician Documentation [facility] Name: Seymour Osuna Age: 75 yrs Sex: Male : 1945 Arrival Date: 05/11/2021 Time: 12:05 Bed 2 Private MD: ED Physician Tapan Amaya HPI: 05/11 14:04 This 75 yrs old Male presents to ER via Ambulatory with complaints of Finger jr8 Injury - Laceration. 14:04 Is a 75-year-old male that presented to the emergency room with complaints of right jr8 thumb injury. Patient stated that he was cutting wood with a table saw and accidentally caught his finger into the salt causing large laceration. Denies any other injury at this time.. Historical: - Allergies: 12:32 No Known Allergies; iw - Home Meds: 12:32 potassium chloride 20 mEq Oral TbER 1 tab 2 times per day [Active]; allopurinol 300 mg iw Oral tab 1 tab once daily [Active]; apixaban 5 mg oral tab 1 tab 2 times per day [Active]; lisinopril 10 mg Oral tab 1 tab once daily [Active]; metoprolol succinate 100 mg oral CSpX 1 cap once daily [Active]; furosemide 20 mg Oral tab 1 tab once daily [Active]; atorvastatin 80 mg oral tab 1 tab once daily [Active]; cholecalciferol (vitamin D3)-vitamin K2 oral daily [Active]; Farxiga 5 mg oral tab 1 tab once daily [Active]; - PMHx: 12:32 Hypercholesterolemia; Hypertensive disorder; iw - PSHx: 12:32 back and knee SX; Coronary artery bypass graft; hernia repair x 2; iw - Immunization history:: Adult Immunizations up to date. - Social history:: Smoking status: Patient denies any tobacco usage or history of. ROS: 14:04 Eyes: Negative for injury, pain, redness, and discharge, ENT: Negative for injury, jr8 pain, and discharge, Neck: Negative for injury, pain, and swelling, Cardiovascular: Negative for chest pain, palpitations, and edema, Respiratory: Negative for shortness of breath, cough, wheezing, and pleuritic chest pain, Abdomen/GI: Negative for abdominal pain, nausea, vomiting, diarrhea, and constipation, Back: Negative for injury and pain, Skin: Negative for injury, rash, and discoloration, Neuro: Negative for headache, weakness, numbness, tingling, and seizure. 14:04 MS/extremity: Positive for decreased range of motion, laceration, of the palmar aspect of distal phalanx of right thumb. Exam: 14:04 Constitutional: This is a well developed, well nourished patient who is awake, alert, jr8 and in no acute distress. Cardiovascular: Regular rate and rhythm with a normal S1 and S2. No gallops, murmurs, or rubs. Normal PMI, no JVD. No pulse deficits. Respiratory: Lungs have equal breath sounds bilaterally, clear to auscultation and percussion. No rales, rhonchi or wheezes noted. No increased work of breathing, no retractions or nasal flaring. Skin: Warm, dry with normal turgor. Normal color with no rashes, no lesions, and no evidence of cellulitis. Neuro: Awake and alert, GCS 15, oriented to person, place, time, and situation. Cranial nerves II-XII grossly intact. Motor strength 5/5 in all extremities. Sensory grossly intact. 14:04 Musculoskeletal/extremity: Extremities: grossly normal except: noted in the Right thumb: Patient has sagittal like laceration from tip of thumb to proximal base of thumb. Osseous components exposed. Patient has no distal range of motion with thumb. Tendon injury involved. Remainder of extremity unremarkable, Circulation is intact in all extremities. Sensation intact. Vital Signs: 12:30 BP 110 / 67; Pulse 64; Resp 14 S; Pulse Ox 99% on R/A; Weight 90.72 kg (R); Height 5 jg9 ft. 6 in. (167.64 cm) (R); 13:53 BP 111 / 57; Pulse 73; Resp 18; Pulse Ox 100% on R/A; smith 12:30 Body Mass Index 32.28 (90.72 kg, 167.64 cm) jg9 MDM: 12:49 Patient medically screened. jr8 14:04 Data reviewed: vital signs, nurses notes, lab test result(s), EKG, radiologic studies, jr8 plain films, and as a result, I will admit patient. Data interpreted: Pulse oximetry: on room air is 100 %. Interpretation: normal. Counseling: I had a detailed discussion with the patient and/or guardian regarding: the historical points, exam findings, and any diagnostic results supporting the discharge/admit diagnosis, lab results, radiology results, the need for further work-up and treatment in the hospital. ED course: Dr. Matta called and taking patient to surgery . 05/11 12:54 Order name: CBC with Diff; Complete Time: 14:07 05/11 12:54 Order name: Protime (+inr); Complete Time: 14:8 05/11 12:54 Order name: Ptt, Activated; Complete Time: 14:8 05/11 12:56 Order name: XRAY Hand RIGHT 3 View; Complete Time: 14:8 05/11 12:54 Order name: EKG - Nurse/Tech; Complete Time: 13:51 05/11 12:54 Order name: EKG; Complete Time: 12:54 jr8 Administered Medications: 13:51 Drug: Tetanus-Diphtheria Toxoid Adult 0.5 ml {Hot Head Machine Operator: [employer]. Exp: smith 10/01/2022. Lot #: [id number]. } Route: IM; Site: left deltoid; 13:53 Follow up: Response: No adverse reaction smith Disposition: 18:31 Co-signature as Attending Physician, Tapan Amaya MD I agree with the assessment and kdr plan of care. Disposition Summary: 05/11/21 14:02 Hospitalization Ordered Hospitalization Status: Observation smith Location: Operating Room smith Condition: Stable smith Bed/Room Type: Standard Room Assignment: Provider: Ravindra Matta(05/11/21 14:04) jr8 Problem: new jr8 Symptoms: have improved jr8 Diagnosis - Partial Amputation Right Thumb jr8 Discharge Instructions: - Discharge Summary Sheet bd Forms: - SBAR form bd - Medication Reconciliation Form smith Signatures: Dispatcher [employer] EDMS Tapan Amaya MD MD kdr Williams, Irene, RN RN iw Roszak, Josh, PA PA jr8 Aidee Hill Corrections: (The following items were deleted from the chart) 14:04 14:02 Tapan Amaya jr8 14:04 14:02 Encounter for surgical aftercare following surgery on the skin and subcutaneous jr8 tissue smith
[2021-05-11] MEDS ORDERED: CODEINE 30MG/APAP 300MG TAB ONE (15:36)
[2021-05-11 16:15] VITALS: BP 151/93; TEMP 96.5
--- NOTE | 2021-05-11 16:29 | OP ---
Surgeon: Ravindra Matta MD Preoperative Diagnosis: Intra-articular fracture of the interphalangeal joint of the thumb. Postoperative Diagnosis: Intra-articular fracture of the interphalangeal joint of the thumb. Procedure Performed: Debridement of skin and subcutaneous tissue with bone, flap advancement closure simple closure 2.5 cm. Anesthesia: Digital block. Procedure In Detail: The patient had digital block performed using 1 % xylocaine in the holding area. Then, hand was prepped with Betadine scrub and Betadine paint. Dry sterile drapes were applied in the usual manner. Six gloves were used as a digital tourniquet in the thumb. The patient had a laceration over the phylangal region and the palm. The palm was superficial and elliptically excised. Electrocautery was used for hemostasis and wound was closed with 4-0 Prolene simple sutures. Attention was then turned to the thumb. The patient had intra-articular fracture. Portion of the bone removed then underwent debridement of skin and subcutaneous tissue with bone with flap closure over the IPJ of the thumb. This was done after the wound was irrigated with antibiotic solution. Electrocautery was used for hemostasis. Wound was closed with 4-0 Prolene simple sutures. The flap was advanced from volar to dorsal. Dressed with Xeroform, 2-inch Cyndi and Kerlix. The patient tolerated the procedure well and returned to recovery. IRON/SALLY Voice ID: [id number] Report ID: [id number] PRETTY
--- NOTE | 2021-05-11 16:53 | HP ---
Date of Admission: 05/11/2021 History Of Present Illness: The patient is a 75-year-old white male, right-hand dominant, put his hand into a table saw today about 1030 . tetuus toxoid was given. Past Medical History: He has previous history of gout, hypertension. Past Surgical History: Previous multiple surgeries, appendectomy, knee replacement, shoulder surgery. Social History: He does not smoke. Drinks alcohol rarely. Allergies: HE HAS NO ALLERGIES. Medications: He is on blood pressure pills, anticoagulants and medication for gout. Physical Examination: Vital Signs: He is 5 feet 6 inches, 200 pounds. Extremities: He has split the thumb of the right hand longitudinally. Laboratory Data: The x-ray shows fracture and bone missing of the distal phalanx and intra-articular fractures of the distal phalanx into the joint. Assessment: Open fracture, open wound. Plan: Debridement closure possible flap or amputation IRON/MODL Voice ID: [id number] PRETTY
== END 2021-05-11 16:10 | disposition home or self-care (01) ==
LOC: ER 12:04 → OR 14:10
PROVIDERS: ATTEND Specialist
PROC: 0HXFXZZ Transfer Right Hand Skin, External Approach (ICD-10-PCS; 2021-05-11)
PROC: 0PDR0ZZ Extraction of Right Thumb Phalanx, Open Approach (ICD-10-PCS; principal; 2021-05-11 14:00)
DX: S62.521A Displaced fracture of distal phalanx of right thumb, initial encounter for closed fracture (principal); Z23 Encounter for immunization
CPT/HCPCS: 93005; 85025; 36415; 85610; 88304; 85730; 73130; 90471; 90714; 99285; 26989; 11044; 14040; J7120; J0690